=== PATIENT | female | born 1965 | race Caucasian/White ===

== ENCOUNTER 2017-07-06 18:00 | Inpatient (IN) | payer MEDICARE, OTHER ==
[~2017-07-06] VITALS: Ht 172.7 cm; Wt 66.5 kg
[~2017-07-06 18:00] MED LIST: AMLODIPINE BESYL5 MG PO; ATORVASTATIN CA20 MG PO; CELEBREX100 MG PO; CYMBALTA60 MG PO; FLEXERIL5 MG; FOLIC ACID1 MG PO; IBUPROFEN200 MG PO; LEVOTHYROXINE100 MCG PO; NORCO 10-325 T1 EACH PO; OMEPRAZOLE20 MG PO; PREMARIN0.45 MG PO; REMERON30 M1 PO; SINGULAIR10 MG PO; TOVIAZ4 MG PO; VALTREX500 MG PO
--- NOTE | 2017-07-06 18:38 | Diagnostic Imaging Report ---
PROCEDURE:CHEST SINGLE (PORTABLE) COMPARISON:None. INDICATIONS:altered mental status FINDINGS: LUNGS:No significant pulmonary parenchymal abnormalities and normal vascularity. CARDIAC:Normal size cardiac silhouette. MEDIASTINUM:Normal. PLEURA:Normal. BONES:Fusion plate in the lower cervical spine is partially imaged. Visualized portions are unremarkable. OTHER:Negative. CONCLUSION: No acute cardiopulmonary process. Dictated by: Ashlee Marshall M.D. on 07/06/2017 at 18:40 Electronically approved by: Ashlee Marshall M.D. on 07/06/2017 at 18:40
--- NOTE | 2017-07-06 19:03 | Diagnostic Imaging Report ---
History: Bilateral weakness Comparison studies: None Technique: Axial images were obtained from the skull base to the vertex. Coronal and sagittal reconstructions obtained from the axial data. Findings: Scalp/skull: No abnormalities. No fractures, blastic or lytic lesions. Extra-axial spaces: No masses. No fluid collections. Brain sulci: Appropriate for age. Ventricles: Normal in size and configuration. No hydrocephalus. Parenchyma: Few hypodensities in the supratentorial white matter are small vessel ischemic changes. No masses, hemorrhage, acute or chronic cortical vascular insults. Sellar/suprasellar region: No abnormalities. Craniocervical junction: Patent foramen magnum. No Chiari one malformation. Incidental findings: Atherosclerotic calcifications in the carotid siphons . Mild opacification of the right mastoid air cells. Impression: No acute abnormalities. Mild supratentorial white matter small vessel ischemic changes. Signed by: DR Tru Garcia M.D. on 07/06/2017 7:00 PM
--- NOTE | 2017-07-06 19:24 | History and Physical ---
HISTORY OF PRESENT ILLNESS: Patient presented to the emergency room having called the office approximately at 1530 today regarding symptoms of COHEN generalized X 3 days and altered sensorium. She was asked to come to the emergency room at that time. History includes chronic primary hypertension, degenerative joint disease and disc disease with chronic back pain. Patient declining further invasive treatments. Prior stroke. Hypothyroidism. Allergic rhinitis. Herpes simplex. Patient also has been taking chronically estrogens 0.45 mg a day of conjugated estrogens, which she has declined recommendations to stop. See also prior admission med list. Includes thyroid supplements antihypertensives as well as chronic [place] 10. SURGICAL PMH - Septoplasty; C-spine X 2; EGD 2013; Colonoscopy 2014; D&C X 4; Cath 2014 - 20% lesion only. SOCIAL HISTORY: The patient smokes 1 pack of cigarettes daily. She uses marijuana and used this morning. She also took in addition to her prescribed medicines Benadryl yesterday. FAMILY HISTORY: Mother CVA, CAD; Father CVA; Siblings seizures, depression. Patient notes occasional generalized headache today. Denies meningismus. No current visual symptoms. Denies dysphagia. The family related altered speech today. ROSS further negative. Patient has chronic dyspnea on exertion and is sedentary. Denies chest pain. Denies nausea or diaphoresis or bleeding. Denies current symptoms. Chronic low back pain with occasional bilateral radicular symptoms. ALLERGIES: Penicillin, Sulfa, Wellbutrin, Ambien. Cozaar caused renal failure. Lipitor caused leg pain. Pneumovax given 2011. Again to check outpatient records when available regarding these. CURRENT EXAMINATION GENERAL: The patient is supine on stretcher. She is oriented. Speech is slightly altered from baseline. VITAL SIGNS: Pulse 80 and regular. Respiratory rate 16. No respiratory distress. Blood pressure 140/86. HEENT: Pupils are equal and reactive. EOMs full. No pallor. NECK: Supple. Throat clear. Tongue midline. Carotids palpable. No palpable goiter. PULMONARY: On auscultation reduced breath. CARDIAC: Sounds soft. ABDOMEN: Overweight. Soft. Bowel sounds normal. EXTREMITIES: Without cyanosis, clubbing or edema. Trace generalized left weakness. DTRs depressed. CURRENT IMPRESSION: 1. Altered sensorium. 2. Altered speech. 3. Cephalgia. 4. History of stroke. 5. Ongoing estrogen use. 6. Hypothyroidism. 7. Primary hypertension. 8. Disk disease with chronic low back pain and chronic requirements for hydrocodone. Patient declining further invasive treatment. C6 Radiculopathy. 9. Allergic rhinitis. 10. History of herpes simplex on chronic valacyclovir. 11. COPD. 12. A1C 6.3 on 01-21-17 (Prediabetes). 13. Psoriasis. 14. Depression. 15. Stable R adrenal adenoma (CT 2007, 2013) 16. Prior imaging with R Mastoiditis. 17. PVD L renal artery stenosis - nonfunction L (atrophied) kidney. 18. GERD Case discussed with ER physician. Plans are for head CT. TPA if a candidate. Control blood pressure. Continue thyroid supplements. See also initial orders as discussed with ER. The patient advised regarding findings and initial recommendations. See also home med list per EMR when available. Initial database here not yet available. Job#: [id number] GH MTDD
[2017-07-06 19:32] LABS: BASOPHILS % 0.3 % (0.0-1.0); EOSINOPHILS # (AUTO) 0.1 (0.0-0.4); EOSINOPHILS % 0.7 % (0.0-6.0); HEMATOCRIT 39.4 % (34.2-44.1); HEMOGLOBIN 13.2 g/dL (12.0-16.0); LYMPHOCYTES # (AUTO) 3.3 (1.0-3.2); LYMPHOCYTES % 29.1 % (18.0-39.1); MEAN CORPUSCULAR HEMOGLOBIN 29.5 pg (28-32); MEAN CORPUSCULAR HGB CONC 33.5 g/dL (31-35); MEAN CORPUSCULAR VOLUME 88.1 fL (81-99); MONOCYTES # (AUTO) 0.8 (0.2-0.8); MONOCYTES % 7.2 % (4.4-11.3); NEUTROPHILS % 62.5 % (38.7-80.0); PLATELET COUNT 250 x10e3/uL (140-360); RED BLOOD COUNT 4.47 x10e6/uL (3.6-5.1); RED CELL DISTRIBUTION WIDTH 14.6 % (11.7-14.4)
[2017-07-06 19:34] LABS: CLARITY,URINE CLEAR (CLEAR); COLOR,URINE YELLOW (YELLOW)
[2017-07-06 19:35] LABS: BILIRUBIN,URINE NEGATIVE (NEGATIVE); KETONES,URINE 1+ (NEGATIVE); LEUKOCYTE ESTERASE ,URINE NEGATIVE (NEGATIVE); NITRITE,URINE NEGATIVE (NEGATIVE); PROTEIN,URINE DIPSTICK TRACE (NEGATIVE); URINE UROBILINOGEN 0.2 mg/dL (0.2 - 1)
[2017-07-06 19:38] LABS: AMPHETAMINES SCREEN,URINE NEGATIVE (NEGATIVE); BENZODIAZEPINES SCREEN,URINE POSITIVE (NEGATIVE); PHENCYCLIDINE SCREEN,URINE NEGATIVE (NEGATIVE)
[2017-07-06 19:42] LABS: INR 0.98; PROTHROMBIN TIME 12.2 seconds (11.9-14.5)
[2017-07-06 19:43] LABS: PARTIAL THROMBOPLASTIN TIME 28.5 seconds (23.8-35.5)
[2017-07-06 19:49] LABS: ALANINE AMINOTRANSFERASE 25 IU/L (0-55); ALBUMIN/GLOBULIN RATIO 1.1 (0.8-2.0); ALKALINE PHOSPHATASE 104 IU/L (40-150); ANION GAP 14.6 mmol/L (8-16); BLOOD UREA NITROGEN 15 mg/dL (7-26); BUN/CREATININE RATIO 19 (6-25); CARBON DIOXIDE 24 mmol/L (22-29); CHLORIDE 105 mmol/L (98-107); EST GLOMERULAR FILTRATION RATE > 60 ML/MIN (60-); GLUCOSE 104 mg/dL (74-118); POTASSIUM 3.6 mmol/L (3.5-5.1); SODIUM 140 mmol/L (136-145)
[2017-07-06 19:49] LABS: BACTERIA,URINE RARE /HPF; EPITHELIAL CELLS,URINE FEW /LPF
[2017-07-06] MEDS ORDERED: ALTEPLASE 50 MG/VIAL (29 MILLION IU) IV ONE ×2 (20:00)
[2017-07-06] MEDS: SODIUM CHLORIDE 0.9% 1000ML 1,000 ML IV SCH (20:31)
--- OUTSIDE RECORDS SUMMARY | 2017-07-06 22:16 | XMS REPORT ---
Author [facility] Address Unknown Phone Unavailable Care Team Providers Care Documentation Liaison Name Role Phone SANDEEP FOY Unavailable Unavailable Problems This patient has no known problems. Allergies, Adverse Reactions, Alerts This patient has no known allergies or adverse reactions. Medications This patient has no known medications. Results Test Description Test Time Test Comments Text Results Atomic Results Result Comments CHEST SINGLE (PORTABLE) [place] [address] Patient Name: ELIANA SAMUELS [facility] MR #: [id number] : 1965 Age/Sex: 51/F Req #: [id number] Adm Physician: Ordered by: SANDEEP FOY MD Report #: [id number] Location: ER Room/Bed: Procedure: [id number] DX/CHEST SINGLE (PORTABLE) Exam Date: 07/06/17 Exam Time: 1815 REPORT STATUS: Signed PROCEDURE: CHEST SINGLE (PORTABLE) COMPARISON: None. INDICATIONS: altered mental status FINDINGS: LUNGS: No significant pulmonary parenchymal abnormalities and normal vascularity. CARDIAC: Normal size cardiac silhouette. MEDIASTINUM: Normal. PLEURA: Normal. BONES: Fusion plate in the lower cervical spine is partially imaged. Visualized portions are unremarkable. OTHER: Negative. CONCLUSION: No acute cardiopulmonary process. Dictated by: Samuel Marshall M.D. on at 18:40 Electronically approved by: Samuel Marshall M.D. on at 18:40 Dictated By: SAMUEL MARSHALL MD 39 Transcribed By : [place] on 07/06/171839 COPY TO: SANDEEP FOY MD CT BRAIN WO [place] [address] Patient Name: ELIANA SAMUELS [facility] MR #: [id number] : 1965 Age/Sex: 51/F Req #: [id number] Adm Physician: Ordered by: SANDEEP FOY MD Report #: [id number] Location: Room/Bed: Procedure: [id number] CT/CT BRAIN WO Exam Date: 07/06/17 Exam Time: 1814 REPORT STATUS: Signed History: Bilateral weakness Comparison studies: None Technique: Axial images were obtained from the skull base to the vertex. Coronal and sagittal reconstructions obtained from the axial data. Findings: Scalp/skull: No abnormalities. No fractures, blastic or lytic lesions. Extra-axial spaces: No masses. No fluid collections. Brain sulci: Appropriate for age. Ventricles: Normal in size and configuration. No hydrocephalus. Parenchyma: Few hypodensities in the supratentorial white matter are small vessel ischemic changes. No masses, hemorrhage, acute or chronic cortical vascular insults. Sellar/suprasellar region: No abnormalities. Craniocervical junction: Patent foramen magnum. No Chiari one malformation. Incidental findings: Atherosclerotic calcifications in the carotid siphons . Mild opacification of the right mastoid air cells. Impression: No acute abnormalities. Mild supratentorial white matter small vessel ischemic changes. Signed by: DR Tru Garcia M.D. on 07/06/2017 7:00 PM Dictated By : TRU STREETER MD 99 COPY TO: SANDEEP FOY MD
[2017-07-07] VITALS (71 sets, daily range): BP systolic 120–194; BP diastolic 54–105
[2017-07-07] MEDS ORDERED: ONDANSETRON HCL 4 MG ORAL DISINTEGRATING TAB ONE (04:56)
[2017-07-07] MEDS: ONDANSETRON HCL 4 MG ORAL DISINTEGRATING TAB PO PRN ×2 (05:19→18:15)
[2017-07-07] MEDS: SODIUM CHLORIDE 0.9% 1000ML 1,000 ML IV SCH ×2 (05:35→06:47)
[2017-07-07] MEDS: LEVOTHYROXINE SODIUM 100 MCG TAB PO SCH (10:46)
[2017-07-07] MEDS: FOLIC ACID 1 MG TAB PO SCH (10:46)
[2017-07-07] MEDS: PANTOPRAZOLE SOD 40 MG TABEC PO SCH (10:46)
[2017-07-07] MEDS: HYDROCODONE/APAP 10MG-325MG TAB PO PRN ×5 (10:47→18:36)
[2017-07-07 11:13] LABS: CHOL/HDL RATIO 3.3 (3.0-3.6)
[2017-07-07 11:33] LABS: THYROID STIMULATING HORMONE 0.402 uIU/mL (0.350-4.940)
--- NOTE | 2017-07-07 17:59 | Consultation ---
DATE OF CONSULTATION: July 07, 2017 NEUROLOGY CONSULTATION HISTORY OF PRESENT ILLNESS: Ms. Jackman is a 51-year-old, right-hand- dominant woman with past medical history significant for hypertension, hyperlipidemia, possible atrial flutter, and number one prior stroke with unknown residual deficits who presented to [facility] on July 06, 2017 with symptoms suspicious for stroke. Ms. Jackman reports having a labile blood pressure for few days prior to admission. In addition, the patient endorses a headache which is described as follows: The pain was located behind the eyes and did not radiate. The pain was described as sharp and rated a 10 out of 10. Associated with the headache were photophobia, phonophobia, nausea, and dizziness. One day prior to admission, the patient noted mild dysarthria. Other than the mild dysarthria, labile blood pressure, and headache, the patient reports experiencing no other symptoms at that time. On the day admission, in addition to the symptoms described above, the patient reports having a facial droop (site unknown), left hemiparesis affecting the arm and leg, and impairment of gait secondary to weakness. Ms. Jackman notified her primary care physician regarding her symptoms. She was instructed to proceed to the emergency center at [facility] immediately for further evaluation. Upon admission to the emergency center, the patient was afebrile with a blood pressure of 152/82 mmHg and a pulse of 57 beats per minute. The patient's documented neurological examination is not available for review at this time. However, I spoke with the emergency center attending shortly before 8 p.m. on July 06, 2017. He informed me the patient had left hemiparesis affecting the arm and the leg. He informed the symptoms began approximately 3 to 4 hours previously. However, in speaking with Ms. Jackman, she reports these symptoms were present "all day". In my conversation with the emergency center attending, based on the information provided, it was determined there were no absolute contraindications to administration of intravenous thrombolytics. Therefore, Ms. Jackman received a bolus dose of Alteplase 5.8 mg IV over approximately 1 minute followed by an infusion of 52.2 mg IV over the next hour. Afterwards, the patient was admitted to the intensive care unit of [facility] for further evaluation and treatment. As stated above, the patient had a stroke approximately 1 year ago. Ms. Jackman does not recall what symptoms she experienced during that stroke. REVIEW OF SYSTEMS: Chest pain, palpitations, nausea and vomiting, dysarthria, facial weakness, weakness of the left arm and left leg, impaired balance and gait, back pain, headache, photophobia, phonophobia, and dizziness. PAST MEDICAL HISTORY: Hypertension, hyperlipidemia, angina, possible atrial flutter, asthma, thyroid disease, depression, posttraumatic stress disorder, prior history of migraines, one prior stroke with unknown residual deficits, chronic neck and back pain with radiculopathy, psoriasis, and . PAST SURGICAL HISTORY: Cervical fusion times 2, partial hysterectomy, D and C times 4, exploratory laparotomy times 2, epidural steroid injections, cardiac catheterization. PAST HOSPITALIZATIONS: Surgeries/procedures as listed, childbirth times 3, stroke, multiple other hospitalizations for reasons patient cannot recall. FAMILY HISTORY: The patient's paternal and maternal grandparents are . Their medical histories are unknown. The patient's father is from complications of congestive heart failure. He had diabetes mellitus type 2, asthma, and depression as well. The patient's mother is alive. She has had 2 strokes as well as diabetes mellitus type 2, angina and atrial fibrillation. The patient had 5 sisters and 2 brothers. One sister is . One brother is . The patient's sister from liver failure due to alcoholic cirrhosis. The patient's remaining brother has coronary artery disease. One sister has bipolar disorder. Ms. Jackman reports 1 or 2 of her sister's has epilepsy. The patient has 3 children. Her eldest daughter has possible depression. Her youngest daughter has bipolar disorder. SOCIAL HISTORY: Ms. Jackman lives with a domestic partner. She is on disability. The patient does report current tobacco use. She has smoked approximately 1 pack per day for the past 40 years. Patient does not endorse alcohol use. She reports daily marijuana use for treatment of pain. HOME MEDICATIONS: Aspirin 81 mg by mouth daily, amlodipine 5 mg by mouth daily, Celebrex 100 mg by mouth twice daily, Flexeril 5 mg by mouth three times daily as needed, Cymbalta 60 mg by mouth daily, Premarin 0.45 mg by mouth daily, Toviaz 4 mg by mouth daily, folic acid 1 mg by mouth daily, hydrocodone/acetaminophen 10 and 325 mg by mouth every 6 hours as needed for pain, ibuprofen 400 mg by mouth as needed for pain, levothyroxine 100 mcg by mouth daily, Remeron 30 mg by mouth at bedtime daily, Singulair 10 mg by mouth at bedtime daily, omeprazole 20 mg by mouth daily, valacyclovir 500 mg by mouth daily. ALLERGIES: PATIENT ENDORSES ALLERGIES TO PENICILLIN, SULFA DRUGS, ATORVASTATIN, BUPROPION, TRAMADOL, LISINOPRIL, LOSARTAN, AND AMBIEN. NO KNOWN FOOD ALLERGIES. NO KNOWN ALLERGIES TO LATEX. NO KNOWN ALLERGIES TO IODINE OR OTHER CONTRAST MATERIALS. PHYSICAL EXAMINATION: VITAL SIGNS: Height 68 inches, weight 147 pounds, BMI 22.3 kg per meter squared, blood pressure 149/84 mmHg, pulse 76 beats per minute, respiratory rate 18 breaths per minute, oxygen saturation 96% on room air. GENERAL: The patient is awake and alert. Does not appear distressed. HEENT: Normocephalic and atraumatic. Pupils are equal, round and reactive to light. Moist mucous membranes. NECK: Supple. No appreciable thyromegaly. No appreciable carotid bruits. CARDIOVASCULAR: S1 and S2. Regular rate and rhythm. No murmurs, rubs or gallops. RESPIRATORY: Clear to auscultation bilaterally. No wheezes, rhonchi or rales. EXTREMITIES: The skin is warm and dry. No clubbing, cyanosis or edema. The posterior tibial and dorsalis pedis pulses are 1+ and symmetric. SKIN: No rashes or lesions. NEUROLOGIC: Memory/attention: The patient is awake and alert. Oriented to person, place, time, and situation. CRANIAL NERVES: Cranial nerve I: Not tested. Cranial nerves II, III, IV, : Pupils are equal and round, react briskly to light (from 6 mm to 3 mm). Extraocular movements intact. No nystagmus. Cranial nerve V: Sensation to light touch and pinprick is intact in the bilateral V1 through V3 distributions except as follows: Decreased sensation to pinprick over the left VII distribution. Strength of the temporalis and masseter muscles is within normal limits. Cranial nerve VII: There is flattening of the right nasolabial fold. All facial movements are symmetric. Strength is within normal limits. Cranial nerve VIII: Hearing is intact to finger rub bilaterally. Cranial nerve IX and X: The soft palate elevates equally and symmetrically. Cranial nerve XI: Normal strength of the bilateral sternocleidomastoid and trapezius muscles. Cranial nerve XII: The tongue protrudes midline and moves symmetrically from side to side. STRENGTH: Bulk is normal. The patient maintains both arms against gravity for more than 10 seconds each without drift. The patient maintains both legs against gravity for more than 5 seconds each without drift. Tone is normal. DTRs: Deep tendon reflexes are 3+ at the right triceps, biceps, brachioradialis, and patella. Deep tendon reflexes are 2+ at the left triceps, biceps, brachioradialis and patella. The Achilles' reflexes are 1+ and symmetric. Plantar responses are flexor bilaterally. Absent clonus. SENSATION: Intact to light touch and pinprick in both arms and both legs except as follows: Decreased sensation to light touch over the left arm. Decreased sensation to light touch and pin prick over the right leg. CEREBELLAR: Xjeukz-mkhf-hnqzxx and heel-tellez movements are intact without dysmetria or other impairment. GAIT: Deferred. SPEECH: Spontaneous speech is mildly dysarthric without appreciable aphasia. Repetitions is intact. INVOLUNTARY MOVEMENTS: None. PRONATOR DRIFT: As per motor exam. LABORATORY DATA: Sodium 140, potassium 3.6, chloride 105, carbon dioxide 24, anion gap 14.6, BUN 15, creatinine 0.80, estimated GFR greater than 60, BUN to creatinine ratio 19, glucose 104, calcium 10.0, total bilirubin 0.4, AST 17, ALT 25, alkaline phosphatase 104, total protein 7.7, albumin 4.0, globulin 3.7, albumin to globulin ratio 1.1. CBC with differential and platelets reveals a white blood cell count 11.15 with 62.5% neutrophils, 29.1% lymphocytes, 7.2% monocytes, 0.7% eosinophils and 0.3% basophils. The hemoglobin and hematocrit are 13.2 and 39.4, respectively. The platelet count is 250. PT 12.2. INR 0.98, PTT 28.5. Urinalysis revealed trace protein and 1+ ketones. A urine drug screen was positive for opiates and benzodiazepines. RPR pending. DIAGNOSTIC STUDIES: EKG on 07/06/2017 normal sinus rhythm at [address] brain without contrast on 07/06/2017: On my review, there is no evidence of recent large territorial ischemia, hemorrhage, mass or mass effect. Chest X-ray on 07/06/2017: No acute cardiopulmonary process. ASSESSMENT AND PLAN: Ms. Jackman is a 51-year-old, [id number] woman with multiple vascular risk factors, including a prior stroke with unknown residual deficits, who presented to the emergency center at [facility] on the evening of July 06, 2017 with symptoms suspicious for a stroke. Ms. Jackman is status post treatment with intravenous TPA. Her neurological examination is significant for diminished sensation to pinprick over the left VII distribution, flattening of the right nasolabial fold, brisk deep tendon reflexes over the right arm and leg, diminished sensation to light touch over the left arm, diminished sensation to light touch and pinprick over the right leg, and mild dysarthria. Patient's laboratory data and other diagnostic studies have been reviewed and are documented above. Based on Ms. Albright's description of her symptoms and findings on her neurological examination, I am having difficulty localizing this most recent stroke, if the patient did in fact have a stroke. It would be helpful to know what, if any, deficits Ms. Jackman has from the previous stroke which occurred approximately 1 year ago. Other possible diagnoses which may account for the patient's symptoms is recrudescence of prior deficits in the setting of hypertensive emergency. Ms. Jackman reports her systolic blood pressures were in the 200's and above while at home. Another possible diagnosis is complex migraine. RECOMMENDATIONS: 1. Lipid panel and hemoglobin A1c. 2. MRI brain without contrast. 3. Echocardiogram. 4. Bilateral carotid artery ultrasound with Doppler. 5. Plavix 75 mg by mouth daily for stroke prophylaxis will be started 24 hours status post tPA. 6. Allow permissive hypertension for 24 to 48 hours post stroke. Patient's goal blood pressure is 160-180/70-90 mmHg. 7. Followup lipid panel. 8. Followup hemoglobin A1c. Tight glycemic control. 9. Speech and physical therapy consultations will be ordered. 10. GI prophylaxis with Protonix. DVT prophylaxis with STDs. 11. Smoking cessation counseling was provided to the patient. 12. Discontinue estrogen supplements. 13. Defer treatment of the remaining medical comorbidities to the primary and other services. Thank you for this consultation. I will continue to follow this patient while she remains in the hospital. TIME SPENT: 70 minutes. Job#: [id number] GH
[2017-07-07] MEDS: SODIUM CHLORIDE 0.45% 1,000 ML IV SCH (18:50)
--- NOTE | 2017-07-07 20:03 | Diagnostic Imaging Report ---
EXAMINATION: MRI of the brain without contrast. HISTORY: Acute ischemic stroke, status post TPA COMPARISON: None. TECHNIQUE: Sagittal T2; axial DWI, T2, FLAIR, T1-IR, T2 gradient echo; coronal FLAIR. IMAGE QUALITY: Adequate. FINDINGS: Parenchyma: 1. A few scattered white matter hyperintense foci, most likely nonspecific chronic medical changes mostly in the bilateral frontal lobes 2. No mass, hemorrhage, acute or chronic infarcts. Skull: Unremarkable. Vessels: Expected flow voids present in the major arteries and dural sinuses. Extra-axial spaces: No abnormal signal intensity or mass effect. Brain volume: Within normal limits for age. Ventricles: No hydrocephalus or displacement. Foramen magnum: Unremarkable. Sella: Unremarkable. Paranasal / mastoid sinuses: Partial opacification of the right mastoid air cells, likely minimal effusion, otherwise clear. IMPRESSION: 1. No acute infarcts seen at this time. No intracranial hemorrhage. 2. Unchanged minimal chronic microvascular ischemic changes compared to head CT on 07/06/2017. Signed by: Dr. Juanita Vuong M.D. on 07/07/2017 7:59 PM
[2017-07-07] MEDS ORDERED: MAGNESIUM HYDROXIDE 30 ML UDC ONE (20:06)
[2017-07-07] MEDS ORDERED: NON-FORMULARY MEDICATION (Mirtazapine (Remeron) 30 MG) PO SCH (21:00)
[2017-07-07] MEDS: MONTELUKAST SODIUM 10 MG TAB PO SCH (21:40)
[2017-07-07] MEDS: AMLODIPINE BESYLATE 5 MG TAB PO SCH (21:40)
[2017-07-07] MEDS: MIRTAZAPINE 15 MG TAB PO SCH (21:40)
[2017-07-07] MEDS ORDERED: DULOXETINE HCL 30 MG DELAYED RELEASE PO SCH (22:00)
[2017-07-07] MEDS: CITALOPRAM HYDROBROMIDE 20 MG TAB PO SCH (22:41)
[2017-07-08] VITALS (9 sets, daily range): BP systolic 147–188; BP diastolic 76–94
[2017-07-08] MEDS ORDERED: ENALAPRIL MALEATE 5 MG TAB PO SCH (01:00)
[2017-07-08] MEDS: CLONIDINE HCL 0.1 MG TAB PO PRN ×2 (01:30→11:00)
[2017-07-08] MEDS: HYDROCODONE/APAP 10MG-325MG TAB PO PRN ×4 (01:33→17:40)
[2017-07-08] MEDS: SODIUM CHLORIDE 0.9% 1000ML 1,000 ML IV SCH ×5 (01:52→21:52)
[2017-07-08] MEDS: ONDANSETRON HCL 4 MG ORAL DISINTEGRATING TAB PO PRN (04:29)
[2017-07-08] MEDS ORDERED: CLONIDINE HCL 0.1 MG TAB PO ONE (06:00)
[2017-07-08 06:58] LABS: BASOPHILS % 0.3 % (0.0-1.0); EOSINOPHILS % 0.1 % (0.0-6.0); HEMATOCRIT 40.8 % (34.2-44.1); HEMOGLOBIN 13.9 g/dL (12.0-16.0); LYMPHOCYTES # (AUTO) 2.9 (1.0-3.2); MEAN CORPUSCULAR HEMOGLOBIN 29.3 pg (28-32); MEAN CORPUSCULAR HGB CONC 34.1 g/dL (31-35); MEAN CORPUSCULAR VOLUME 86.1 fL (81-99); MONOCYTES # (AUTO) 1.2 (0.2-0.8); MONOCYTES % 8.4 % (4.4-11.3); NEUTROPHILS # (AUTO) 9.8 (2.1-6.9); NEUTROPHILS % 69.6 % (38.7-80.0); PLATELET COUNT 254 x10e3/uL (140-360); RED BLOOD COUNT 4.74 x10e6/uL (3.6-5.1); RED CELL DISTRIBUTION WIDTH 14.6 % (11.7-14.4)
[2017-07-08 07:18] LABS: BLOOD UREA NITROGEN 7 mg/dL (7-26); BUN/CREATININE RATIO 10 (6-25); CALCIUM 9.6 mg/dL (8.4-10.2); CARBON DIOXIDE 19 mmol/L (22-29); CREATININE, SERUM 0.69 mg/dL (0.57-1.11); EST GLOMERULAR FILTRATION RATE > 60 ML/MIN (60-); GLUCOSE 103 mg/dL (74-118)
[2017-07-08 07:41] LABS: CHLORIDE 107 mmol/L (98-107); SODIUM 141 mmol/L (136-145)
[2017-07-08 08:03] LABS: AMPHETAMINES SCREEN,URINE NEGATIVE (NEGATIVE); BENZODIAZEPINES SCREEN,URINE NEGATIVE (NEGATIVE); PHENCYCLIDINE SCREEN,URINE NEGATIVE (NEGATIVE)
[2017-07-08] MEDS: CLOPIDOGREL BISULFATE 75 MG TAB PO SCH (09:00)
[2017-07-08] MEDS ORDERED: PANTOPRAZOLE SOD 40 MG TABEC PO SCH (09:00)
[2017-07-08] MEDS ORDERED: LEVOTHYROXINE SODIUM 100 MCG TAB PO SCH (09:00)
[2017-07-08] MEDS: AMLODIPINE BESYLATE 5 MG TAB PO SCH ×2 (09:00→16:42)
[2017-07-08] MEDS ORDERED: AMLODIPINE BESYLATE 5 MG TAB PO SCH (09:00)
[2017-07-08] MEDS ORDERED: NON-FORMULARY MEDICATION (Duloxetine Hcl (Cymbalta) 60 MG) PO SCH (09:00)
[2017-07-08] MEDS ORDERED: DULOXETINE HCL 30 MG DELAYED RELEASE PO SCH (09:00)
[2017-07-08] MEDS: PANTOPRAZOLE SOD 40 MG TABEC PO SCH (09:01)
[2017-07-08] MEDS: FOLIC ACID 1 MG TAB PO SCH (09:01)
[2017-07-08] MEDS: SODIUM CHLORIDE 0.45% 1,000 ML IV SCH (13:00)
[2017-07-08] MEDS ORDERED: POTASSIUM CHLORIDE 20 MEQ TAB CR PO ONE (13:50)
[2017-07-08] MEDS: CARVEDILOL 3.125 MG TAB PO SCH ×2 (14:00→21:00)
[2017-07-08] MEDS: CLONIDINE HCL 0.3 MG TAB PO SCH ×2 (14:00→21:00)
[2017-07-08 14:10] LABS: CLARITY,URINE SL CLOUDY (CLEAR); COLOR,URINE YELLOW (YELLOW)
[2017-07-08 14:12] LABS: LEUKOCYTE ESTERASE ,URINE NEGATIVE (NEGATIVE); NITRITE,URINE NEGATIVE (NEGATIVE); PROTEIN,URINE DIPSTICK 2+ (NEGATIVE)
[2017-07-08 14:13] LABS: BILIRUBIN,URINE 2+ (NEGATIVE); KETONES,URINE 3+ (NEGATIVE); URINE UROBILINOGEN 0.2 mg/dL (0.2 - 1)
[2017-07-08 14:23] LABS: BACTERIA,URINE RARE /HPF; EPITHELIAL CELLS,URINE RARE /LPF; RBC,URINE 0-5 /HPF (0-5)
--- NOTE | 2017-07-08 15:34 | Diagnostic Imaging Report ---
PROCEDURE: Frontal and lateral views of the chest. COMPARISON: None. INDICATIONS: shortness of breath, chest pain FINDINGS: Lines/tubes: None. Lungs: The lungs are well inflated and clear. There is no evidence of pneumonia or pulmonary edema. Pleura: There is no pleural effusion or pneumothorax. Heart and mediastinum: The heart and the mediastinum are normal. Bones: No acute bony abnormality. IMPRESSION: No acute cardiopulmonary disease. Dictated by: Dwayne Beverly M.D. on 07/08/2017 at 15:36 Electronically approved by: Dwayne Beverly M.D. on 07/08/2017 at 15:36
[2017-07-08] MEDS ORDERED: CARVEDILOL 3.125 MG TAB PO SCH (17:00)
[2017-07-08] MEDS ORDERED: CLONIDINE HCL 0.3 MG TAB PO SCH (17:00)
[2017-07-08] MEDS: ENOXAPARIN SOD INJ 40 MG/0.4 ML SYR SC SCH (20:16)
[2017-07-08] MEDS: MONTELUKAST SODIUM 10 MG TAB PO SCH (20:16)
[2017-07-08] MEDS: MIRTAZAPINE 15 MG TAB PO SCH (20:16)
[2017-07-08] MEDS: CITALOPRAM HYDROBROMIDE 20 MG TAB PO SCH (21:01)
[2017-07-09] VITALS (8 sets, daily range): BP systolic 128–175; BP diastolic 64–79
[2017-07-09] MEDS: HYDROCODONE/APAP 10MG-325MG TAB PO PRN ×3 (04:38→18:35)
[2017-07-09] MEDS: SODIUM CHLORIDE 0.45% 1,000 ML IV SCH (06:16)
[2017-07-09] MEDS: CARVEDILOL 3.125 MG TAB PO SCH ×3 (06:17→21:42)
[2017-07-09] MEDS: CLONIDINE HCL 0.3 MG TAB PO SCH ×3 (06:17→21:42)
[2017-07-09] MEDS: SODIUM CHLORIDE 0.9% 1000ML 1,000 ML IV SCH (06:18)
[2017-07-09] MEDS: LEVOTHYROXINE SODIUM 100 MCG TAB PO SCH (06:28)
[2017-07-09 06:49] LABS: BASOPHILS % 0.2 % (0.0-1.0); EOSINOPHILS # (AUTO) 0.1 (0.0-0.4); EOSINOPHILS % 0.8 % (0.0-6.0); HEMATOCRIT 37.7 % (34.2-44.1); HEMOGLOBIN 12.8 g/dL (12.0-16.0); LYMPHOCYTES # (AUTO) 2.6 (1.0-3.2); LYMPHOCYTES % 29.9 % (18.0-39.1); MEAN CORPUSCULAR HEMOGLOBIN 29.3 pg (28-32); MEAN CORPUSCULAR VOLUME 86.3 fL (81-99); MONOCYTES # (AUTO) 0.9 (0.2-0.8); MONOCYTES % 9.8 % (4.4-11.3); NEUTROPHILS # (AUTO) 5.2 (2.1-6.9); PLATELET COUNT 229 x10e3/uL (140-360); RED BLOOD COUNT 4.37 x10e6/uL (3.6-5.1); RED CELL DISTRIBUTION WIDTH 14.6 % (11.7-14.4)
[2017-07-09 07:24] LABS: ANION GAP 13.7 mmol/L (8-16); BLOOD UREA NITROGEN 6 mg/dL (7-26); BUN/CREATININE RATIO 9 (6-25); CALCIUM 9.3 mg/dL (8.4-10.2); CARBON DIOXIDE 23 mmol/L (22-29); CHLORIDE 107 mmol/L (98-107); EST GLOMERULAR FILTRATION RATE > 60 ML/MIN (60-); GLUCOSE 137 mg/dL (74-118); SODIUM 141 mmol/L (136-145)
[2017-07-09 07:27] LABS: POTASSIUM 2.7 mmol/L (3.5-5.1)
[2017-07-09] MEDS ORDERED: POTASSIUM CHLORIDE 20 MEQ TAB CR PO STA (08:01)
[2017-07-09] MEDS: FOLIC ACID 1 MG TAB PO SCH (08:26)
[2017-07-09] MEDS: CLOPIDOGREL BISULFATE 75 MG TAB PO SCH (08:26)
[2017-07-09] MEDS: PANTOPRAZOLE SOD 40 MG TABEC PO SCH (08:26)
[2017-07-09] MEDS: AMLODIPINE BESYLATE 5 MG TAB PO SCH ×2 (08:26→15:30)
--- NOTE | 2017-07-09 11:02 | Consultation ---
DATE OF CONSULTATION: July 09, 2017 I would like to thank Dr. Dhaliwal for asking me to see Mrs. Jackman in consultation. REASON FOR CONSULTATION 1. Status post new-onset weakness to the left upper and lower extremity. 2. History of old CVA 1-1/2 years ago. 3. Hypertension. 4. History of radiculopathy. 5. History of atrial flutter. HISTORY: Mrs. Jackman is a pleasant but unfortunate 51-year-old female who about 1-1/2 years ago had previous stroke according to her. She has a history of possible atrial flutter and hyperlipidemia. Came into the hospital with symptoms consistent with stroke. The patient was found to have some labile blood pressures prior to her admission. The patient was noted to have some mild dysarthria. The patient came into the emergency room where over at [facility] her blood pressure was 152/82, and noted to have some left-sided weakness per notes. She received tPA. The patient was admitted. I am being asked to evaluate for rehab needs. Since then, her symptoms seem to have improved, but she still feels weakness on the left side, and has some numbness around both lateral aspects of her eyes and malar area. I am being asked to evaluate for rehab needs. The patient wants to go to [facility]. PAST MEDICAL HISTORY: Hypertension, hyperlipidemia, thyroid disease, asthma, A-flutter, depression, posttraumatic stress disorder, migraines, history of previous CVA with left-sided weakness per her report, pain with radiculopathy, psoriasis. SURGERIES: Include cervical fusion times 2, partial hysterectomy, D and C times 4, exploratory laparotomy, CONCHITA, and cardiac catheterizations. FAMILY HISTORY: Grandparents are passed. Their medical histories are unknown. The patient has a mother who is alive. She has had 2 strokes, as well as diabetes. Diabetes also runs in other members of her family. SOCIAL HISTORY: Lives with her significant other in a trailer. Takes 3 steps to get into the house. Prior to this admission, was baseline able to mobilize and get around without any assistive device. She is on disability mainly for her back pain, as well as her PTSD. HABITS: A pack a day for the past 40 years. Nondrinker. Marijuana use just for pain management. ALLERGIES: PENICILLIN, SULFA, ATORVASTATIN, BUPROPION, ULTRAM, LISINOPRIL, LOSARTAN, AMBIEN. NO KNOWN FOOD ALLERGIES. LABS: White cell count 8.7, hemoglobin 12.8, hematocrit 37.7, and platelets of 229,000. Sodium 141, potassium 2.7, BUN of 6, creatinine 0.7. MRI of the brain shows no acute infarction at this time. No intracranial hemorrhage, unchanged. Minimal chronic microvascular ischemic changes compared to the previous CT. She had a carotid Doppler study, but results are pending. She also had a chest x-ray with no acute cardiopulmonary disease. PHYSICAL EXAMINATION GENERAL: The patient was seen along with her significant other. Awake, alert and oriented times 3. HEENT: Eyes: Gaze is conjugant. No nystagmus. No visual field deficits. Tongue is midline with protrusion. Sensory abarca, she has some numbness feeling right around the malar area bilaterally, as well as both of the lateral aspects of the temporal area, but nothing severe. Dowfww-[id number] finger tracing is pretty within normal limits. No other sensory changes in the arms or legs at this time. NECK: No JVD. HEART: Regular rate and rhythm. LUNGS: Clear to auscultation. ABDOMEN: Nontender and nondistended. EXTREMITIES: Functional range of motion to the arms, as well as the legs. bilaterally. No increased tone or passive range of motion of the arms or legs. Manual muscle testing pretty much 5/5 strength in the right arm and right leg throughout. The left upper extremity demonstrates essentially 4/5 strength throughout. In the left lower extremity, she has give away weakness with knee extension and hip flexion. Demonstrating essentially 4- to 4/5 strength. THERAPY: PT has seen her. There is no occupational therapy available at this facility. Upon PT evaluation, the patient was found to [id number], contact guard assist. Gait was not tested. She did have some elevated blood pressures when they tried to mobilize her more. IMPRESSION 1. Left-sided weakness: She seems to be doing better. MRI and computerized tomography have not confirmed a stroke, but she has reported an old stroke from before. 2. The patient with hypertension. 3. History of possible atrial flutter. 4. Thyroid disease. 5. History of depression. 6. Posttraumatic stress disorder. PLAN: The patient would like to go to [facility] for continuation of care. Staff will be submitting. I would like to also have speech therapy see her while she is here. Unfortunately, no occupational therapy is available. Thank you once again for allowing me to participate in the care of this pleasant patient. Job#: [id number] JOSUE
[2017-07-09] MEDS: ENOXAPARIN SOD INJ 40 MG/0.4 ML SYR SC SCH (15:30)
--- NOTE | 2017-07-09 16:02 | Consultation ---
DATE OF CONSULTATION: July 09, 2017 ATTENDING PHYSICIAN: Dr. Dhaliwal. REASON FOR CONSULTATION: Fever. Thank you, Dr. Dhaliwal, for asking me to see this patient. HISTORY OF PRESENT ILLNESS: The patient is a 51-year-old woman referred for fever. She presented to the emergency department on 07/06/2017 with a headache and altered mental status, as well as history of stroke and hemiparesis. She was evaluated by the ED physician and neurologist. Brain CT scan was negative for so the patient was treated with . Infectious disease has been called for fever, which began a few days ago. She had right forearm peripheral IV, which was changed yesterday because of malfunction. She denies cough, shortness of breath, nausea, vomiting, diarrhea, abdominal pain, and dysuria. PAST MEDICAL HISTORY: Hypertension, hyperlipidemia, hypothyroidism, stroke, dizziness, , herpes simplex, and psoriasis. PAST SURGICAL HISTORY: Septoplasty, D and C, hysterectomy. ALLERGIES: PENICILLIN, SULFA, LIPITOR, AMBIEN, COZAAR, AND WELLBUTRIN. MEDICATIONS: See APR. IMMUNIZATION: She received multiple vaccination in the past. FAMILY HISTORY: The mother with CVA, coronary artery disease, seizure, and depression. SOCIAL HISTORY: Patient smokes 1 pack of cigarettes a day, but would not tolerate talking about smoking. She denies alcohol use. She uses marijuana. REVIEW OF SYSTEMS: As per history of present illness. She reports decreased appetite, bad taste, and odor. PHYSICAL EXAMINATION GENERAL: No acute distress and does not appear toxic. VITAL SIGNS: T-max 100.2, pulse 74, respiratory rate 18, blood pressure 138/77. Weight is 146 pounds. HEENT: Normocephalic. There is no icterus, no injection of conjunctivae. There is no ear or nasal discharge. Moist oral mucosa with poor dentition. There is no pharyngeal erythema or exudate and no oral lesions. NECK: Supple. No lymphadenopathy or meningismus. LUNGS: Clear to auscultation bilaterally. HEART: Normal S1 and S2. ABDOMEN: Soft and nontender. EXTREMITIES: There is no edema, clubbing or cyanosis. There is a bluish discoloration with tender cord of the right forearm of the site of old peripheral IV. SKIN: There is plaque of the feet, posterior elbows, and hand. RE DYE HAND: Awake, alert and oriented to person, place and time. Nonfocal. LABORATORY AND DIAGNOSTIC: WBC 8700 down from 14,020, hemoglobin 12.8, platelet 229,000, neutrophil 59, lymph 29.9, mono 9.8, eosinophil 0.8, and basophil 0.2. BUN 6 and creatinine 0.7. Blood culture is pending. Chest x-ray shows no acute cardiopulmonary process. Brain CT scan also showed no acute bleed or infarct. IMPRESSION 1. Thrombophlebitis, not infected. 2. Fever due to thrombophlebitis. 3. Tobacco use disorder. 4. Psoriasis. 5. Hyperthyroidism. PLAN 1. Apply warm compresses to the right forearm tender cord. 2. No antibiotic is indicated at this time. Job#: [id number] BJ
[2017-07-09] MEDS: MONTELUKAST SODIUM 10 MG TAB PO SCH (21:42)
[2017-07-09] MEDS: CITALOPRAM HYDROBROMIDE 20 MG TAB PO SCH (21:42)
[2017-07-09] MEDS: MIRTAZAPINE 15 MG TAB PO SCH (21:42)
[2017-07-10] VITALS (8 sets, daily range): BP systolic 120–149; BP diastolic 58–63
[2017-07-10] MEDS: LEVOTHYROXINE SODIUM 100 MCG TAB PO SCH (05:34)
[2017-07-10] MEDS: CLONIDINE HCL 0.3 MG TAB PO SCH ×3 (05:34→20:55)
[2017-07-10] MEDS: CARVEDILOL 3.125 MG TAB PO SCH ×3 (05:34→20:55)
--- NOTE | 2017-07-10 07:04 | Diagnostic Imaging Report ---
Exam: Lumbar spine MRI without IV contrast History: Arm and leg weakness Comparison studies: None Technique: Sagittal and axial T2 , sagittal T1 and IR, axial spin density oblique and coronal T2. Intravenous contrast: None Findings: Number of lumbar vertebral bodies: 5. Alignment: Normal lordosis. No scoliosis. Soft tissues: No T2 hyperintense inflammatory changes. Paraspinal muscles: Mild symmetric atrophy. Lower thoracic cord: Normal in signal and morphology. The tip of the conus is at L2 . Cauda equina: No masses. No arachnoiditis. Vertebrae: No compression fractures, infection or neoplasm. Degenerative changes: Mild loss of T2/STIR disc signal from T10 through L3 and L5-S1. L1-L2: Patent canal and foramina. L2-L3: Mild loss of disc height and loss of T2/STIR disc signal. Mild symmetric bulging disc which does not result in canal stenosis. Patent foramina. L3-L4: No abnormalities L4-L5: Mild symmetric bulging disc and mild right facet arthrosis without associated canal or foraminal stenosis. L5-S1: Moderate loss of disc height and loss of T2 disc signal. Symmetric disc bulge and facet arthrosis with mild to moderate bilateral foraminal stenosis. Additional findings: Multiple small T2 hyperintense lesions in the right kidney are most likely cysts. The left kidney is atrophic and contains a few small T2 hyperintense lesions which may also be cysts. IMPRESSION: 1. Moderately degenerated disc with mild to moderate bilateral foraminal stenosis at L5-S1. No canal stenosis or significant foraminal stenosis at the remaining lumbar levels. 2. Incidental atrophic left kidney with bilateral renal cysts. Signed by: Dr. Jey Ventura M.D. on 07/10/2017 7:00 AM
[2017-07-10 07:17] LABS: ALANINE AMINOTRANSFERASE 20 IU/L (0-55); ALBUMIN 3.6 g/dL (3.5-5.0); ALBUMIN/GLOBULIN RATIO 1.3 (0.8-2.0); ALKALINE PHOSPHATASE 79 IU/L (40-150); ANION GAP 14.2 mmol/L (8-16); BLOOD UREA NITROGEN 14 mg/dL (7-26); BUN/CREATININE RATIO 18 (6-25); CALCIUM 9.5 mg/dL (8.4-10.2); CARBON DIOXIDE 25 mmol/L (22-29); CHLORIDE 109 mmol/L (98-107); CREATININE, SERUM 0.77 mg/dL (0.57-1.11); EST GLOMERULAR FILTRATION RATE > 60 ML/MIN (60-); GLUCOSE 126 mg/dL (74-118); POTASSIUM 3.2 mmol/L (3.5-5.1); SODIUM 145 mmol/L (136-145)
--- NOTE | 2017-07-10 07:30 | Diagnostic Imaging Report ---
Exam: Cervical spine MRI without IV contrast History: Arm and leg weakness Comparison studies: None Technique: Sagittal T1, T2 and IR, axial T2 and axial gradient echo Intravenous contrast: None Findings: Alignment: Normal lordosis. No scoliosis. Cervicomedullary junction: No abnormalities. Patent foramen magnum. Soft tissues: No T2 hyperintense inflammatory changes. Spinal cord: Normal in size and signal from the foramen magnum through T1. Vertebrae: No fractures, infection or neoplasm. Postsurgical changes: Anterior cervical discectomy and fusion (ACDF) at C5-C6 with anterior plate fixated via anterior vertebral body screws and solid interbody fusion. Probable discectomy changes at C6-C7 with susceptibility artifact related related to metallic hardware/possible cage prosthesis which extends from the disc space to the superior C7 endplate. Hardware cannot be further evaluated by MRI and could better be evaluated by conventional cervical spine x-ray or cervical spine CT as warranted. Degenerative changes: C2-C3: Patent canal and foramina. C3-C4: Mildly degenerated disc. Mild canal stenosis due to a disc osteophyte complex with small central disc protrusion. Moderate bilateral foraminal stenosis due to uncovertebral and facet arthrosis. C4-C5: Moderately degenerated disc adjacent to the fused level. Mild canal stenosis due to a disc osteophyte complex. Moderate bilateral foraminal stenosis due to uncovertebral arthrosis. C5-C6: Surgical level. Patent canal and foramina. C6-C7: Moderate loss of disc height. Residual disc osteophyte complex and mildly thickened ligamentum flavum result in mild canal stenosis. Moderate bilateral foraminal stenosis due to uncovertebral arthrosis. Patent canal and foramina. C7-T1: Right facet arthrosis. Patent canal and foramina. Incidental findings: Nonspecific T2 hyperintense reactive changes in the right mastoids. A T2 hyperintense cyst or nodule in the right thyroid lobe measures 0.8 cm. IMPRESSION: 1. No cervical cord signal abnormalities. 2. Surgical changes of C5-C6 anterior fusion and presumed discectomy at C6-C7. 3. Mildly degenerated disc at C3-C4. Moderately degenerated disc at C4-C5 and moderate decreased disc space at C6-C7. 4. Mild degenerative canal stenosis with moderate bilateral degenerative foraminal stenosis at C3-C4, C4-C5 and at C6-C7. Signed by: Dr. Jey Ventura M.D. on 07/10/2017 7:26 AM
[2017-07-10] MEDS: FOLIC ACID 1 MG TAB PO SCH (08:38)
[2017-07-10] MEDS: CLOPIDOGREL BISULFATE 75 MG TAB PO SCH (08:38)
[2017-07-10] MEDS: PANTOPRAZOLE SOD 40 MG TABEC PO SCH (08:38)
[2017-07-10] MEDS: AMLODIPINE BESYLATE 5 MG TAB PO SCH ×2 (08:38→17:31)
[2017-07-10] MEDS: HYDROCODONE/APAP 10MG-325MG TAB PO PRN ×3 (08:45→20:00)
[2017-07-10] MEDS ORDERED: POTASSIUM CHLORIDE 10 MEQ TABCR PO ONE (11:00)
--- NOTE | 2017-07-10 17:05 | Diagnostic Imaging Report ---
History: Acute ischemic stroke Comparison studies: Head CT on 07/06/2017 Brain MRI on 07/07/2017 Technique: 3-D [id number] intracranial. Contrast: None Findings: Internal carotid arteries: No flow abnormalities. Vertebral arteries: No flow abnormalities in the visualized intracranial segments. Basilar artery: No flow abnormalities. Posterior cerebral arteries: No flow abnormalities. Anatomical variants: Acom: Visualized. Pcoms: Right patent. The P1 segment of the right GLASS [employer]OWER [employer] is mildly hypoplastic. Left not visualized. Vertebral arteries: Right dominant IMPRESSION: No abnormalities . Signed by: Dr. Mason Clement M.D. on 07/10/2017 5:02 PM
[2017-07-10] MEDS: ENOXAPARIN SOD INJ 40 MG/0.4 ML SYR SC SCH (17:31)
[2017-07-10] MEDS: CITALOPRAM HYDROBROMIDE 20 MG TAB PO SCH (20:54)
[2017-07-10] MEDS: MONTELUKAST SODIUM 10 MG TAB PO SCH (20:55)
[2017-07-10] MEDS: MIRTAZAPINE 15 MG TAB PO SCH (20:55)
[2017-07-11 00:22] VITALS: BP 133/59
[2017-07-11] MEDS: LEVOTHYROXINE SODIUM 100 MCG TAB PO SCH (05:54)
[2017-07-11] MEDS: CARVEDILOL 3.125 MG TAB PO SCH (05:54)
[2017-07-11] MEDS: CLONIDINE HCL 0.3 MG TAB PO SCH (05:54)
[2017-07-11 06:00] VITALS: BP 129/60
[2017-07-11 07:56] LABS: ANION GAP 12.5 mmol/L (8-16); BLOOD UREA NITROGEN 15 mg/dL (7-26); BUN/CREATININE RATIO 21 (6-25); CALCIUM 9.2 mg/dL (8.4-10.2); CARBON DIOXIDE 25 mmol/L (22-29); CHLORIDE 109 mmol/L (98-107); EST GLOMERULAR FILTRATION RATE > 60 ML/MIN (60-); GLUCOSE 127 mg/dL (74-118); POTASSIUM 3.5 mmol/L (3.5-5.1); SODIUM 143 mmol/L (136-145)
[2017-07-11 08:16] VITALS: BP 133/61
[2017-07-11 08:46] VITALS: BP 133/61
[2017-07-11] MEDS: CLOPIDOGREL BISULFATE 75 MG TAB PO SCH (08:46)
[2017-07-11] MEDS: FOLIC ACID 1 MG TAB PO SCH (08:46)
[2017-07-11] MEDS: AMLODIPINE BESYLATE 5 MG TAB PO SCH (08:46)
[2017-07-11] MEDS: PANTOPRAZOLE SOD 40 MG TABEC PO SCH (08:46)
[2017-07-11] MEDS: HYDROCODONE/APAP 10MG-325MG TAB PO PRN (08:46)
[2017-07-11 12:33] VITALS: BP 153/65
[2017-07-11] MEDS ORDERED: PLAVIX75 MG PO (13:10)
[2017-07-11] MEDS ORDERED: CLONIDINE HCL0.3 MG PO (13:10)
[2017-07-11] MEDS ORDERED: PEPCID20 MG PO (13:11)
[2017-07-11] MEDS ORDERED: COREG3.125 MG PO (13:11)
--- NOTE | 2017-07-11 13:51 | Discharge Summary ---
The patient was hospitalized through the emergency room. See also ER note and electronic medical record with history, physical, prior admissions, consultations. She had history of stroke. The patient presented with multiple difficulties, including labile hypertension, headache, dysarthria, subjective left-sided increase in weakness. Database was obtained. Blood pressure was medically controlled. Neurology consultation was obtained for possible stroke. Patient was given Alteplase in the emergency room. She had a course of progressive improvement. Course was complicated by low-grade fever and superficial phlebitis at the right ventral forearm IV site. She was reassessed by consultants of infectious disease, neurology and cardiology while here. Continuation of medical therapy was recommended. Initial chemistries essentially normal. Magnesium 2.2. The patient's course was complicated by transient hypokalemia, which responded to repletion. This occurred after admission and treatment with IV fluids. LDL was 52. TSH was 0.4. Patient had minimal elevation in blood sugar while here. Maximum sugar 137. The white count paula to 14,000 on July 08, 2017, and fell to 8700 on July 09, 2017. Hemoglobin and platelet counts normal. Sed rate 14. Pro time and PTT normal. Urinalysis without pyuria. No glycosuria. No hematuria. RPR nonreactive. Toxicology positive for opiates. The patient was on hydrocodone for chronic back pain and neck pain prior to admission. She also tested positive for benzodiazepines and cannabinoids. Cultures of blood and urine were negative. ER chest x-ray clear. Followup chest x-ray because of fever was clear. ER head CT with mild supratentorial white matter small vessel ischemic changes. The carotid Doppler without major obstruction. Head MRI on July 07, 2017, no acute infarct. Unchanged minimal chronic microvascular ischemic changes. C-spine MRI on July 09, 2017, see report. No cervical cord signal abnormalities. Surgical changes at C5-C6 anterior effusion and diskectomy of C6-C7. Disk disease at C3-C4, C4-C5 and C6-C7. Mild degenerative canal stenosis. Moderate bilateral foraminal stenosis, C3-C4, C5-C6 and C6-C7. Lumbar spine MRI on July 09, 2017, degenerative disk, bilateral foraminal stenosis, mild, L5-S1. No canal stenosis. Head MRA with no abnormalities. Bubble study and cardiac echo done by the consulting machine programmer, Dr. Pang negative. Echo revealed LVH. Ejection fraction 60%. The patient was markedly improved and requesting outpatient status. Declining rehabilitation move. She requests home physical therapy and this will be requested through the office immediately post discharge. CURRENT IMPRESSION 1. Altered sensorium. 2. Altered speech, resolved. 3. Prior history of stroke. 4. Current symptoms with possible new cerebrovascular accident. Consider aura with migraine. 5. Patient had significant cephalgia, which has resolved. 6. Hypothyroidism. 7. TSH normal here. 8. Primary hypertension with uncontrolled blood pressure on arrival, controlled now. 9. Disk disease. 10. Chronic low back pain. 11. C6 radiculopathy. 12. Lumbar disk disease. 13. Allergic rhinitis. 14. History of herpes simplex, on chronic valacyclovir. 15. Chronic obstructive pulmonary disease. 16. Heavy smoker. 17. Prediabetes with A1c of 6.3 on January 21, 2017. 18. Psoriasis. 19. Depression. 20. Stable right adrenal adenoma, on serial computerized tomographies in 2007 and 2013. 21. Chronic right mastoiditis. 22. Peripheral vascular disease with left renal artery stenosis, which has led to nonfunction and atrophy of the left kidney. 23. Intolerance to ROSARIO inhibitors. 24. Gastroesophageal reflux disease. The patient will follow up in the clinic closely with her neurologist and myself. She will continue: 1. Norvasc 10 mg daily. 2. Plavix 75 mg. As she is on Plavix, PPI will be stopped. 3. She will continue Pepcid 40 mg daily. 4. Catapres 0.3 mg q.8 h. 5. Coreg 3.25 mg q.8 h. 6. She will resume her prior to admission levothyroxine dose 62.5. She will continue prior to admission antidepressants and Singulair. Patient has in the past used estrogens, but she states she has not used these recently, and they will not be used at this time. She was asked to hold her Flexeril and NSAIDs for the time being. The patient was cleared for discharge by her consultants. The findings here were discussed with the patient and her family. She was counseled to call or return for any significant difficulty. KRISTOPHER JULIO MD Job#: [id number] RI
--- NOTE | 2017-07-19 17:13 | Consultation ---
DATE OF CONSULTATION: July 10, 2017 HISTORY OF PRESENT ILLNESS: This 51-year-old patient was admitted to the hospital with speech abnormality, altered mental status and left-sided weakness, which was precipitated by severe headaches. The patient has been seen in consultation by the neurologist. She had CT scan and MRI of the brain, which mostly showed microvascular disease. I was kindly asked by Dr. Dhaliwal to evaluate the patient for any possible cardiac cause of the patient's cerebrovascular insufficiency. The patient has been seen on kind referral by Dr. Dhaliwal in the past for hypertension, angina pectoris and palpitations, and she was found to have mild coronary artery disease on previous cardiac catheterization. Also, there was evidence of severe left renal artery stenosis with nonfunctioning left kidney. PAST MEDICAL HISTORY: The patient's past history also includes lumbar radiculopathy, cervical decompression surgery x2, psoriasis, allergic rhinitis and sinusitis by Dr. Curran, hypothyroidism, migraine headaches, GERD, septoplasty. She apparently had seizure disorder with Zyban and Wellbutrin. She has leg pain with Lipitor, lisinopril and losartan. She cannot tolerate Colestid. The patient has sleep walking with Ambien, and had severe migraine headache after she was started on isosorbide. SOCIAL HISTORY: The patient smokes one pack of cigarettes per day. ALLERGIES: PENICILLIN, SULFA. FAMILY HISTORY: Positive for coronary artery disease, seizure disorder and CVA. REVIEW OF SYSTEMS: Revealed the patient denies any headache or sore throat. The patient denies any chest pain or shortness of breath. The patient denies any abdominal pain. No nausea, vomiting, diarrhea or constipation. She denies any leg pain. PHYSICAL EXAMINATION VITAL SIGNS: Blood pressure 130/76. She is afebrile. Current pulses are present. CHEST: Clear to auscultation. CARDIOVASCULAR: Normal apical impulse. Rhythm is regular. S1 and S2 normal. No S3 and no rub. ABDOMEN: Soft. No tenderness or organomegaly. EXTREMITIES: Pulses are present. There is no peripheral edema. NEUROLOGIC: No localizing defect. IMPRESSION 1. Cryptogenic stroke, recurrent, with microvascular disease on brain scan. 2. Hypertensive cardiovascular disease. 3. Mild coronary artery disease. 4. Gastroesophageal reflux disease. 5. Migraine headache. RECOMMENDATIONS: The patient's symptoms could be related to her migraine headaches. Also as far as cardiac disorder and sometimes association with migraine is patent foramen ovale with right to left shunt. Also, some intermittent cardiac arrhythmia, particularly paroxysmal atrial fibrillation could also be causing the patient's neurogenic symptoms. I would recommend to obtain contrast injection and do study associated with an echocardiogram to rule out any septal shunt at the atrium of the ventricle, particularly rule out any patent foramen ovale with right to left shunt. If there is any indication of cardiac arrhythmia, the patient could also be further evaluated by prolonged cardiac monitoring with either external Holter monitoring or insertion of rn cardiac, which is available from different pacemaker companies, and they can be utilized for several months or years. All of this was discussed with the patient. The patient agrees to have the bubble study, which would be the next step for ruling out any cardiac disorder. Thank you very much for letting me see this very nice patient. Job#: [id number] COLE
== END 2017-07-11 13:25 | disposition home or self-care (01) | DRG 62 ==
LOC: ER 18:00 → ERHOLD 22:13 → EDBEDREQSVC 23:16 → ICU 23:58 → MED/SURG 07-07 23:28
PROVIDERS: ADMIT Internal Medicine; ATTEND Internal Medicine
DX: I63.8 Other cerebral infarction (principal); G81.94 Hemiplegia, unspecified affecting left nondominant side; I48.92 Unspecified atrial flutter; R47.1 Dysarthria and anarthria; R41.841 Cognitive communication deficit; E03.9 Hypothyroidism, unspecified; R73.03 Prediabetes; F32.9 Major depressive disorder, single episode, unspecified; H70.11 Chronic mastoiditis, right ear; L40.9 Psoriasis, unspecified; M51.17 Intervertebral disc disorders with radiculopathy, lumbosacral region; K21.9 Gastro-esophageal reflux disease without esophagitis; I25.10 Atherosclerotic heart disease of native coronary artery without angina pectoris; G40.909 Epilepsy, unspecified, not intractable, without status epilepticus; N28.9 Disorder of kidney and ureter, unspecified; I70.1 Atherosclerosis of renal artery; F17.210 Nicotine dependence, cigarettes, uncomplicated; E78.5 Hyperlipidemia, unspecified; I80.9 Phlebitis and thrombophlebitis of unspecified site; R50.81 Fever presenting with conditions classified elsewhere; F43.10 Post-traumatic stress disorder, unspecified; G89.29 Other chronic pain; B00.9 Herpesviral infection, unspecified; F12.90 Cannabis use, unspecified, uncomplicated; E87.6 Hypokalemia; R90.82 White matter disease, unspecified; Z79.52 Long term (current) use of systemic steroids; Z79.01 Long term (current) use of anticoagulants; M43.22 Fusion of spine, cervical region; Z86.73 Personal history of transient ischemic attack (TIA), and cerebral infarction without residual deficits; Z88.2 Allergy status to sulfonamides; Z88.0 Allergy status to penicillin; I73.89 Other specified peripheral vascular diseases
CPT/HCPCS: 36415; 70450; 70544; 70551; 71045; 71046; 72141; 72148; 80048; 80053; 80061; 80307; 81001; 82948; 83036; 83735; 83880; 84132; 84443; 85025; 85610; 85651; 85730; 86592; 87040; 87086; 92523; 93005; 93306; 93308; 93880; 99285; J1650; J7030

== ENCOUNTER 2019-07-29 13:13 | Emergency (ER) | payer MEDICARE, OTHER ==
[~2019-07-29] VITALS: Ht 172.7 cm; Wt 66.2 kg
[~2019-07-29 13:13] MED LIST changes: +CLONIDINE HCL0.3 MG PO; +COREG3.125 MG PO; +PEPCID20 MG PO; +PLAVIX75 MG PO
--- OUTSIDE RECORDS SUMMARY | 2019-07-29 13:15 | XMS REPORT | Clinical Summary ---
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[employer] Name Role Phone Chuck Dhaliwal PCP Allergies Comments Active Allergy Reactions Severity Noted Date Rudolph Inhibitors Nausea Only Medium 07/13/2013 Acid reflux Citric Acid Nausea Only, Low 07/13/2013 Rash Leg pain Atorvastatin Other (See Medium 07/13/2013 Comments) Severe dizziness, severe headaches Lisinopril 07/13/2013 Penicillins Rash Medium 07/13/2013 Sulfa (Sulfonamide Rash Medium 07/13/2013 Antibiotics) Allergy to Zyban As well in same category as wellbutrin Gives pt seizures Bupropion Hcl 07/13/2013 Medications End Date Status Medication Sig Dispensed Refills Start Date Active estrogens, conjugated, Take 0.45 mg 0 (PREMARIN) 0.45 MG tablet by mouth daily. for 21 days then do not take for 7 days. Active levothyroxine (SYNTHROID, Take 100 mcg 0 LEVOTHROID) 100 MCG by mouth tablet daily. Active promethazine (PHENERGAN) Place 25 mg 0 25 MG suppository rectally every 6 (six) hours as needed for Nausea. Active mirtazapine (REMERON) 30 Take 30 mg by 0 MG tablet mouth nightly. Active HYDROcodone-acetaminophen Take 1 tablet 0 (NORCO 10-325) 10-325 mg by mouth per tablet every 6 (six) hours as needed for Pain. Active montelukast (SINGULAIR) Take 10 mg by 0 10 mg tablet mouth nightly. Active omeprazole (PRILOSEC) 20 Take 20 mg by 0 MG capsule mouth daily. Active folic acid (FOLVITE) 400 Take 400 mcg 0 MCG tablet by mouth daily. Active TiZANidine (ZANAFLEX) 4 Take 4 mg by 0 MG capsule mouth 3 (three) times daily. Active valACYclovir (VALTREX) Take 500 mg 0 500 MG tablet by mouth. Active rosuvastatin (CRESTOR) 5 Take 5 mg by 0 MG tablet mouth daily. Active sotalol AF (SOTALOL AF) Take 80 mg by 0 80 MG tablet mouth 2 (two) times daily. Active Problems Problem Noted Date CAD (coronary artery disease), [place] coronary artery 09/02/2013 HTN (hypertension), benign 09/02/2013 Family History Medical History Relation Name Comments COPD Father Depression Father Diabetes Father Heart disease Father Hypertension Father Stroke Father Depression Maternal Grandfather Heart disease Maternal Grandfather Hypertension Maternal Grandfather Depression Maternal Grandmother Heart disease Maternal Grandmother Hypertension Maternal Grandmother Depression Mother Diabetes Mother Heart disease Mother Hypertension Mother Kidney disease Mother Depression Paternal Grandfather Heart disease Paternal Grandfather Hypertension Paternal Grandfather Depression Paternal Grandmother Heart disease Paternal Grandmother Hypertension Paternal Grandmother COPD Sister Depression Sister Diabetes Sister Heart disease Sister Hypertension Sister Relation Name Status Comments Father Maternal Grandfather Maternal Grandmother Mother Paternal Grandfather Paternal Grandmother Sister Social History Date Tobacco Use Types Packs/Day Years Used Current Some Day Smoker Smokeless Tobacco: Never Used Alcohol Use Drinks/Week oz/Week Comments No Sex Assigned at Date Recorded Not on file Industry Job Start Date Occupation Not on file Not on file Not on file Travel End Travel History Travel Start No recent travel history available. Last Filed Vital Signs Not on file Plan of Treatment Not on file Results Not on fileafter 07/28/2018 Insurance Payer Benefit Subscriber ID Type Phone Address Plan / Group [facility] - AARP/MEDIC xxxxxxxxx MEDICARE MGD CARE ARE COMPLETE [phone] Advance Directives For more information, please contact: [facility] [address] [place] [address] Date Inactivated Comments Code Status Date Activated 07/13/2013 9:02 PM All possible means of suppor t, including: cardiac massage, mechanical ventilation, and defibrillation will be used to support life. Code ONE 07/13/2013 2:49 PM 07/13/2013 2:49 PM All possible means of suppor t including;cardiac massage, mechanical ventilation, and defibrillation will be used to support life. Code ONE 07/13/2013 11:48 AM
--- OUTSIDE RECORDS SUMMARY | 2019-07-29 13:15 | XMS REPORT | Continuity of Care Document ---
Author Author [facility] t Organization [facility] t Address [address] [place] [address] Phone Unavailable Care Team Providers Care Airborne Operations Name Role Phone NORI ROBERTO, KRISTOPHER PCP Joey Alvarez Attphys Unavailable Laila CAMARENA, M Josefina Attphys Unavailable P[facility], Care [facility] Acute Attphys Unavailable Chidi Rodriguez Attphys Unavailable KRISTOPHER JULIO Attphys Unavailable KRISTOPHER JULIO Admphys Unavailable Payers Payer Name Policy Type Policy Number Effective Date Expiration Date [facility] [id number] 2013 00:00:[address] [facility] [employer] [id number] 2011 00:00:[address] [facility] Problems Condition Name Condition Details Condition Category Status Onset Date Resolution Date Last Treatment Date Treating Clinician Comments Source CAD (coronary artery disease), yuhaaviatam coronary artery CAD (coronary artery disease), yuhaaviatam coronary artery Disease Active 2013-09-02 00:00:00 [facility] HTN (hypertension), benign HTN (hypertension), benign Disease Active 2013-09-02 00:00:00 [facility] Allergies, Adverse Reactions, Alerts Allergy Name Allergy Type Status Severity Reaction(s) Onset Date Inacti ve Date Treating Clinician Comments Source bupropion HCl Allergy to Substance Active 2017-07-06 00:00: [address] [facility] tramadol HCl Allergy to Substance Active 2017-07-06 00:00:[address] [facility] atorvastatin calcium Propensity to adverse reactions Active MAKES HER LEGS HURT 2017-07-06 00:00:[address] [facility] Penicillin Allergy to Substance Active 2017-07-06 00:00:[address] [facility] Sulfa (Sulfonamide Antibiotics) Allergy to Substance Active 2017-07-06 00:00:[address] [facility] Rudolph Inhibitors Drug Intolerance Active Nausea Only 2013-07-13 00:0 0:00 [facility] Citric Acid Drug Allergy Active Nausea Only, Rash 2013-07-13 00 :00:00 Acid reflux [facility] Atorvastatin Drug Intolerance Active Other (See Comments) 2013-07-13 00:00:00 Leg pain [facility] Lisinopril Drug Allergy Active 2013-07-13 00:00:00 Severe dizziness, severe headaches [facility] Penicillins Drug Allergy Active Rash 2013-07-13 00:00:00 [facility] Sulfa (Sulfonamide Antibiotics) Drug Allergy Active Rash 2013-07-13 00:00:00 [facility] Bupropion Hcl Drug Allergy Active 2013-07-13 00:00:00 Allergy to Zyban As well in same category as wellbutrin Gives pt seizures [facility] Family History Family Member Diagnosis Comments Start Date Stop Date Source Natural father COPD [facility] Natural father Depression [facility] Natural father Diabetes [facility] Natural father Heart disease [facility] Natural father Hypertension [facility] Natural father Stroke [facility] Maternal grandfather Depression [facility] Maternal grandfather Heart disease [facility] Maternal grandfather Hypertension [facility] Maternal grandmother Depression [facility] Maternal grandmother Heart disease [facility] Maternal grandmother Hypertension [facility] Natural mother Depression [facility] Natural mother Diabetes [facility] Natural mother Heart disease [facility] Natural mother Hypertension [facility] Natural mother Kidney disease [facility] Paternal grandfather Depression [facility] Paternal grandfather Heart disease [facility] Paternal grandfather Hypertension I [facility] Paternal grandmother Depression [facility] Paternal grandmother Heart disease [facility] Paternal grandmother Hypertension CH [facility] Natural sister COPD [facility] Natural sister Depression [facility] Natural sister Diabetes [facility] Natural sister Heart disease [facility] Natural sister Hypertension [facility] Social History Social Habit Start Date Stop Date Quantity Comments Source Sex Assigned At [facility] Smoking Status Start Date Stop Date Source Current some day smoker 2013-07-14 00:00:00 [facility] Medications Ordered Medication Name Filled Medication Name Start Date Stop Da te Current Medication? Ordering Clinician Indication Dosage Frequency Signature (SIG) Comments Components Source TiZANidine (ZANAFLEX) 4 MG capsule 2013-07-13 12:35:05 Y es 4mg Q.[id number] Take 4 mg by mouth 3 (three) times daily. [facility] valACYclovir (VALTREX) 500 MG tablet 2013-07-13 12:35:05 Ye s 500mg Take 500 mg by mouth. [facility] rosuvastatin (CRESTOR) 5 MG tablet 2013-07-13 12:35:05 Yes 5mg QD Take 5 mg by mouth daily. [facility] sotalol AF (SOTALOL AF) 80 MG tablet 2013-07-13 12:35:05 Ye s 80mg Q.5D Take 80 mg by mouth 2 (two) times daily. [facility] estrogens, conjugated, (PREMARIN) 0.45 MG tablet 2013-07-13 12:35:04 Yes .45mg QD Take 0.45 mg by mouth daily. for 21 days then do not take for 7 days. [facility] levothyroxine (SYNTHROID, LEVOTHROID) 100 MCG tablet 2 12:35:04 Yes 100ug QD Take 100 mcg by mouth daily. [facility] promethazine (PHENERGAN) 25 MG suppository 2013-07-13 12:35:[address] 25 mg rectally every 6 (six) hours as needed for Nausea. [facility] mirtazapine (REMERON) 30 MG tablet 2013-07-13 12:35:04 Yes 30mg QD Take 30 mg by mouth nightly. [facility] [place] HYDROcodone-acetaminophen (NORCO 10-325) 10-325 mg per table t 2013-07-13 12:35:04 Yes 1{tbl} Take 1 tab let by mouth every 6 (six) hours as needed for Pain. [facility] montelukast (SINGULAIR) 10 mg tablet 2013-07-13 12:35:04 Ye s 10mg QD Take 10 mg by mouth nightly. [facility] omeprazole (PRILOSEC) 20 MG capsule 2013-07-13 12:35:04 Yes 20mg QD Take 20 mg by mouth daily. [facility] folic acid (FOLVITE) 400 MCG tablet 2013-07-13 12:35:04 Yes 400ug QD Take 400 mcg by mouth daily. [facility] Amlodipine Besylate 5 Mg Tablet Amlodipine Besylate 5 Mg Tablet Yes 5 Daily [facility] Carvedilol (Coreg) 3.125 Mg Tab Carvedilol (Coreg) 3.125 Mg Tab Yes 3.125 Every [address] [facility] Celecoxib (Celebrex*) 100 Mg Capsule Celecoxib (Celebrex*) 100 Mg C apsule Yes [address] [facility] Clonidine Hcl 0.3 Mg Tablet Clonidine Hcl 0.3 Mg Tablet Yes .3 Every 8 Hours [facility] Clopidogrel Bisulfate (Plavix) 75 Mg Tablet Clopidogre l Bisulfate (Plavix) 75 Mg Tablet Yes [address] [facility] Cyclobenzaprine Hcl (Flexeril) 5 Mg Tablet Cyclobenzap rine Hcl (Flexeril) 5 Mg Tablet Yes Unknown Dose [facility] Duloxetine Hcl (Cymbalta) 60 Mg Capsule. Duloxetine Hcl (Cymbalta) 60 Mg Capsule.dr Yes 60 Daily [facility] Famotidine (Pepcid) 20 Mg Tablet Famotidine (Pepcid) 20 Mg Tablet Yes [address] [facility] Fesoterodine Fumarate (Toviaz) 4 Mg Tab.er.24h Fesoter odine Fumarate (Toviaz) 4 Mg Tab.er.24h Yes 4 Daily [facility] Folic Acid 1 Mg Tablet Folic Acid 1 Mg Tablet Yes [address] [facility] Hydrocodone Bit/Acetaminophen (Minden 10-325 Tablet) 1 Each Tablet Hydrocodone Bit/Acetaminophen (Minden 10-325 Tablet) 1 Each Tablet Yes [address] [facility] Ibuprofen 200 Mg Capsule Ibuprofen 200 Mg Capsule Yes [address] [facility] Levothyroxine Sodium 100 Mcg Tablet Levothyroxine Sodium 100 Mcg Tabl et Yes 100 Daily [facility] Mirtazapine (Remeron) 30 Mg Tab.rapdis Mirtazapine (Remeron) 30 Mg Tab.rapdis Yes [address] [facility] Montelukast Sodium (Singulair) 10 Mg Tablet Montelukas t Sodium (Singulair) 10 Mg Tablet Yes 10 Bedtime [facility] Valacyclovir Hcl (Valtrex) 500 Mg Tab Valacyclovir Hcl (Valtrex) 50 0 Mg Tab Yes [address] [facility] Estrogens, Conjugated (Premarin) 0.45 Mg Tablet, 0.45 Mg Oral Estrogens, Conjugated (Premarin) 0.45 Mg Tablet, 0.45 Mg Oral 2017-07-11 00:00:0 0 No .[address] [facility] Omeprazole 20 Mg Capsule., 20 Mg Oral Omeprazole 20 Mg Cap jonatan., 20 Mg Oral 2017-07-11 00:00:00 No [address] [facility] Atorvastatin Calcium 20 Mg Tablet, 20 Mg Oral Atorvast atin Calcium 20 Mg Tablet, 20 Mg Oral 2012-10-14 00:00:00 No [address] [facility] Procedures Procedure Date / Time Performed Performing Clinician [facility] Magnetic resonance angiography of head without contrast 2017 00:00:[address] [facility] Magnetic resonance imaging of cervical spine without c ontrast 2017-07-09 00:00:00 NORILILIAIS [facility] Magnetic resonance imaging of lumbar spine without contrast 2017-07-09 00:00:[address] [facility] X-ray of chest, two views 2017-07-08 00:00:00 KRISTOPHER JULIO I [facility] Magnetic resonance imaging of brain without contrast 2017-06 00:00:[address] [facility] Computed tomography of brain without radiopaque contrast 201 09-27-13 00:00:00 SAN[address] V [facility] Encounters Start Date/Time End Date/Time Encounter Type Admission Type Attendi [facility] Care Department Encounter ID Source 2019-05-28 00:00:00 2019-05-28 00:00:00 Telephone Josefina Ulloa [facility] [id number] 2019-05-27 10:56:08 2019-05-27 11:57:01 Urgent Care P[facility], Acute Care Clinic Critical access hospital [facility] [id number] 2017-07-06 22:13:00 2017-07-11 13:25:00 Discharged Inpatient [address] 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 A radiopaque foreign body is not visualized Signed By: Cuco Lopez MD Signed AT: 06/21/192034 Chest Single View 2018-12-17 17:52:00 [place] [address] RADIOLOGY SERVICES REPORT Name: ELIANA SAMUELS Acct Number: [id number] :1965 Age:53 Sex:F Ord Phys: Alexander Ruelas PAC Unit Number: [id number] [facility] Dr: U Status: [facility] ER ER Exam Date: 12/17/18 EXAM DESCRIPTION: RADChest Single View12/17/2018 4:18 pm CLINICAL HISTORY: abd pain COMPARISON: 2009 FINDINGS: The lungs appear clear of acute infiltrate. The heart is normal size IMPRESSION: No acute abnormalities displayed Signed By: Cuco Lopez MD Signed AT: 12/17/181751 Angio Aorta For Dissection 2018-12-17 17:51:00 [place] [address] RADIOLOGY SERVICES REPORT Name: ELIANA SAMUELS Acct Number: [id number] :[id number] Age:53 Sex:F Ord Phys: Alexander Ruelas PAC Unit Number: [id number] [facility] Dr: U Status: [facility] ER ER Exam Date: 12/17/18 EXAM DESCRIPTION: CT - Angio Aorta For Dissection - 12/17/2018 5:32 pm CLINICAL HISTORY: . Chest and abd pain COMPARISON: None TECHNIQUE: Computed tomography angiography of the chest, abdomen pelvis were obtained. 100 cc Isovue 370 was administered intravenously. Coronal and sagittal reconstruction were performed. MIP 3D reconstruction was performed All CT scans are performed using dose optimization technique as appropriate and may include automated exposure control or mA/KV adjustment according to patient size. FINDINGS: An aortic dissection is not seen. An aortic aneurysm is not displayed. The celiac, SMA and CAIT are patent . The proximal left renal artery is patent. Most of the remainder of the left main renal artery is unopacified A lung consolidation is not present. A pericardial effusion is not seen. A pleural effusion is not noted. Fatty liver Spleen, adrenals and pancreas appear unremarkable. Marked left renal cortical thinning. Left kidney is small. Nonobstructing left renal calculus is present. Borderline mild right hydronephrosis. No genitourinary calculus. The appendix is normal. There no evidence diverticulitis. No ascites is noted. Spondylosis L5-S1 IMPRESSION: Negative for an aortic dissection. 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 Borderline mild right hydronephrosis without an obstructing genitourinary calculus Signed By: Cuco Lopez MD Signed AT: 12/17/18 1752 Urine dipstick testing at [id number] 2018-12-17 17:12:00 Test Item Urine specific gravity measurement (test code = 2965-2) 1.005 1.005-1.030 Urine glucose detection (test code = 2349-9) Negative NEG Urine Ketones (test code = UKET) NEGATIVE NEG Urine blood detection (test code = 75261-7) Negative NEG Urine pH (test code = 2756-5) 6.0 5.0-7.0 Urinalysis with microscopy (test code = 86809-7) NEGATIVE NEG Urine Nitrate (test code = UNIT) NEGATIVE NEG Urine Leukocyte Esterase (test code = UESTR) NEGATIVE NEG Comment Bed:7 aac NEG NEG NEG NEG NEG 6.0 NEG Y 1.005Troponin I.cardiac [Mass/volume] in Serum or [id number] 16:24:00* Test Item Value Reference Range Interpretation Comments Troponin I.cardiac [Mass/volume] in Serum or Plasma (t est code = 61845-0) 0.03 ng/mL 0.0-0.045 Test Ordered to Rule Out VTE/DVT? N Comment Bed:7 Test Ordered to Rule Out VTE/D VT? NLipase [Enzymatic activity/volume] in Serum or [id number] 16:24:00* Test Item Value Reference Range Interpretation Comments Lipase [Enzymatic activity/volume] in Serum or Plasma (test code = 3040-3) 76 U/L 73-393 Test Ordered to Rule Out VTE/DVT? N Comment Bed:7 Test Ordered to Rule Out VTE/D VT? NComplete blood count (CBC) with automated white blood cell (WBC) [id number] 16:17:00* Test Item Value Reference Range Interpretation Comments White blood cell count (test code = FQW7997) 10.3 4.3-10.9 Blood erythrocytes count (number/volume) (test code = 62602- 1) 4.38 M/ul 3.86-4.86 Hemoglobin measurement (test code = JPF9941) 12.9 g/dL 12.0-15.0 Blood hematocrit (volume fraction) (test code = 69808-8) 39.1 % 36.0-45.0 MCV (test code = VMZ2897) 89.2 fL 80-100 29 .5 MCHC (test code = MCHC) 33.0 g/dL 32.0-36.0 Platelets (test code = PLT) 289 152-406 Red Cell Distribution Width (test code = RDW) 15.4 % 12.1-15. 2 H Blood platelet mean volume (test code = 46947-2) 8.1 fL 7.6-1 1.3 Neutrophils % (test code = TARUN%) 53.4 % 41.7-73.7 Lymphocytes/leuk NFr Bld (test code = 37864-0) 37.7 % 15.3-44 .8 Monocyte percentage (test code = YJG0370) 6.7 % 3.3-12.3 1.1 Basophil % (test code = 71286-2) 1.1 % 0-1.3 Absolute neutrophil count (test code = QDD7376) 5.5 1.8-8. 0 Absolute lymphocyte count (test code = 60006-5) 3.9 0.7-4. 9 Absolute monocyte count (test code = KHA9296) 0.7 0.1-1.3 0.1 Absolute Basophils (test code = BASA) 0.1 0-0.5 Prothrombin time (PT) with international normalized ratio (INR)2018-12-17 16:17:00* Test Item Value Reference Range Interpretation Comments PT Prothrombin Time (test code = PROTIME) 11.6 s 9.5-12.5 INR in Blood by Coagulation assay (test code = 53581-7) 0.98 Monitor pts using INR value (not prothrombin time) INR Coumadin Therapy: Low Range (prophylaxis) 2.0-3.0 High Range (high risk of clot formation) 2.5-3.5 NBasic Metabolic [id number] 16:13:00* Test Item Value Reference Range Interpretation Comments Serum or plasma sodium measurement (moles/volume) (ehsan t code = 2951-2) 140 mmol/L 136-145 Potassium [Moles/volume] in Serum or Plasma (test code = 282 3-3) 3.3 mmol/L 3.5-5.1 L Chloride [Moles/volume] in Serum or Plasma (test code = 2075 -0) 107 mmol/L 98-107 Carbon dioxide, total [Moles/volume] in Serum or Plasm a (test code = 8-9) 26 mmol/L 21-32 Glucose [Mass/volume] in Serum or Plasma (test code = 2345-7) 12 3 mg/dL 74-106 H Urea nitrogen [Mass/volume] in Serum or Plasma (test code = 3094-0) 14 mg/dL 7-18 Creatinine [Mass/volume] in Serum or Plasma (test code = 216 0-0) 0.92 mg/dL 0.55-1.3 Glomerular Filtration Rate (test code = GFR) 64 mL =/>90 L FOR CHRONIC KIDNEY DISEASE: GFR STAGE DESCRIPTION =/>90 STAGE 1 NORMAL--OR-- MINIMAL KIDNEY DAMAGE WITH NORMAL GFR 60-89 STAGE 2 MILD DECREASE IN GFR 30-59 STAGE 3 MODERATE DECREASE IN GFR 15-29 STAGE 4 SEVERE DECREASE IN GFR <15 STAGE 5 KIDNEY FAILURE The Glomerular Filtration Rate (GFR) has been calculated using the IDMS- Traceable MDRD Study Equation. Calcium [Mass/volume] in Serum or Plasma (test code = 51152- 6) 8.9 mg/dL 8.5-10.1 Liver (Hepatic) [id number] 16:13:00* Test Item Value Reference Range Interpretation Comments Aspartate aminotransferase [Enzymatic ac tivity/volume] in Serum or Plasma by With P-5 (test code = 90580-5) 19 U/L 15-37 Alanine aminotransferase [Enzymatic acti vity/volume] in Serum or Plasma by With P-5'- (test code = 1743-4) 24 U/L 12-78 Alkaline phosphatase [Enzymatic activity /volume] in Serum or Plasma (test code = 6768-6) 103 U/L 45-117 Bilirubin.total [Mass/volume] in Serum or Plasma (test code = 1974-2) 0.3 mg/dL 0.2-1.0 Bilirubin.direct [Mass/volume] in Serum or Plasma (ehsan t code = 1967-7) 0.1 mg/dL 0-0.2 Protein [Mass/volume] in Serum or Plasma (test code = 2885-2) 6. 9 g/dL 6.4-8.2 Albumin [Mass/volume] in Serum or Plasma by Bromocresol purple (BCP) dye binding meth (test code = 69866-4) 3.6 g/dL 3.4-5.0 Globulin (test code = GLOB) 3.3 g/dL 2.3-3.5 Albumin/Globulin Ratio (test code = A/G) 1.1 1.1-1.8 Natriuretic peptide.B prohormone N-Terminal [Mass/volume] in Serum or Plasma 2018-12-17 16:13:00* Test Item Value Reference Range Interpretation Comments Natriuretic peptide.B prohormone N-Termi nal [Mass/volume] in Serum or Plasma (test code = 56883-2) 53 pg/mL <125 Magnesium [Mass/volume] in Serum or Dowxyk3925-35-18 16:13:00* Test Item Value Reference Range Interpretation Comments Magnesium [Mass/volume] in Serum or Plasma (test code = 1912 3-9) 2.0 mg/dL 1.8-2.4 Sodium [id number] 08:02:00* Test Item Value Reference Range Interpretation Comments Sodium Level (test code = 2951-2) 143 136-[address] [facility] [id number] 08:02:00* Test Item Value Reference Range Interpretation Comments Potassium Level (test code = 2823-3) 3.5 3.5-5.[address] [facility]Chloride [id number] 08:02:00* Test Item Value Reference Range Interpretation Comments Chloride Level (test code = 2075-0) 109 98-[address] HospitalCarbon Dioxide [id number] 08:02:00* Test Item Value Reference Range Interpretation Comments Carbon Dioxide Level (test code = 2028-9) 25 22-[address] HospitalAnion [id number] 08:02:00* Test Item Value Reference Range Interpretation Comments Anion Gap (test code = 49497-6) 12.5 8-[address]Blood Urea Ooadwerx1076-77-01 08:02:00* Test Item Value Reference Range Interpretation Comments Blood Urea Nitrogen (test code = 3094-0) 15 7-[address] [facility] HospitalCreatinine2018-05-19 08:02:00* Test Item Value Reference Range Interpretation Comments Creatinine (test code = 2160-0) 0.70 0.57-1.[address] [facility] HospitalBUN/Creatinine Wkjmo9936-83-07 08:02:00* Test Item Value Reference Range Interpretation Comments BUN/Creatinine Ratio (test code = 3097-3) 21 6-[address] [facility] HospitalEstimat Glomerular Filtration Rate 2017-07-11 08:02:00* Test Item Value Reference Range Interpretation Comments Estimat Glomerular Filtration Rate (test code = 60158-1) 60- >60 Ranges were taken from the National Kidney Disease Education Program and the [facility] literature.Reference ranges:60 or greater: Byuiag29-12 ( for 3 consecutive months): Chronic kidney disease 15 or less: Kidney failureCH[facility] HospitalGlucose [id number] 08:02:00* Test Item Value Reference Range Interpretation Comments Glucose Level (test code = AMO8550) 127 74-[address] HospitalCalcium [id number] 08:02:00* Test Item Value Reference Range Interpretation Comments Calcium Level (test code = 64438-8) 9.2 8.4-10.[address] HospitalBlood Pafvywp5600-88-80 16:01:00* Test Item Value Reference Range Interpretation Comments Blood Culture (test code = 12982556) NO GROWTH AFTER [address] [facility] HospitalTotal [id number] 07:24:00* Test Item Value Reference Range Interpretation Comments Total Bilirubin (test code = 1975-2) 0.3 0.2-1.[address] [facility] HospitalAspartate Amino Transf (AST/SGOT) 2017-07-10 07:24:00* Test Item Value Reference Range Interpretation Comments Aspartate Amino Transf (AST/SGOT) (test code = Aspartate Amino Transf (AST/SGOT)) 15 5-[address] [facility] HospitalAlanine Aminotransferase (ALT/SGPT) 2017-07-10 07:24:00* Test Item Value Reference Range Interpretation Comments Alanine Aminotransferase (ALT/SGPT) (test code = 1742-6) 20 0-55 [facility] [id number] 07:24:00* Test Item Value Reference Range Interpretation Comments Total Protein (test code = 2885-2) 6.4 6.5-8.[address] [facility] HospitalAlbumin2018-05-18 07:24:00* Test Item Value Reference Range Interpretation Comments Albumin (test code = 1751-7) 3.6 3.5-5.[address] HospitalGlobulin2018-05-18 07:24:00* Test Item Value Reference Range Interpretation Comments Globulin (test code = 76477-9) 2.8 2.3-3.[address] [facility] HospitalAlbumin/Globulin [id number] 07:24:00 * Test Item Value Reference Range Interpretation Comments Albumin/Globulin Ratio (test code = 1759-0) 1.3 0.8-2.[address] HospitalAlkaline Rfrzadnjrvo2433-36-00 07:24:00* Test Item Value Reference Range Interpretation Comments Alkaline Phosphatase (test code = 6768-6) 79 40-[address] HospitalErythrocyte Sedimentation [id number] 10:13:00* Test Item Value Reference Range Interpretation Comments Erythrocyte Sedimentation Rate (test code = 4537-7) 14 0- [address] [facility] HospitalMagnesium [id number] 08:18:00* Test Item Value Reference Range Interpretation Comments Magnesium Level (test code = 81540-6) 2.2 1.3-2.[address] HospitalWhite Blood [id number] 06:55:00* Test Item Value Reference Range Interpretation Comments White Blood Count (test code = 6690-2) 8.77 4.8-10.[address] [facility] [facility] Blood Vhjji1707-80-40 06:55:00* Test Item Value Reference Range Interpretation Comments Red Blood Count (test code = 789-8) 4.37 3.6-5.[address] [facility] [facility] HospitalHemoglobin2018-05-17 06:55:00* Test Item Value Reference Range Interpretation Comments Hemoglobin (test code = 32165-4) 12.8 12.0-16.[address] HospitalHematocrit2018-05-17 06:55:00* Test Item Value Reference Range Interpretation Comments Hematocrit (test code = 4544-3) 37.7 34.2-44.[address] [facility] HospitalMean Corpuscular Xkfygx7052-05-34 06:55:00* Test Item Value Reference Range Interpretation Comments Mean Corpuscular Volume (test code = 787-2) 86.3 81-[address] [facility] [facility] [facility] HospitalMean Corpuscular Skfpqfmsic0876-05-96 06:55:00* Test Item Value Reference Range Interpretation Comments Mean Corpuscular Hemoglobin (test code = 785-6) 29.3 28-[address] [facility] [facility] [facility] HospitalMean Corpuscular Hemoglobin Concent 2017-07-09 06:55:00* Test Item Value Reference Range Interpretation Comments Mean Corpuscular Hemoglobin Concent (test code = 786-4) 34.0 31-[address] [facility] HospitalRed Cell Distribution Zylae7832-92-26 06:55:00* Test Item Value Reference Range Interpretation Comments Red Cell Distribution Width (test code = 60586-9) 14.6 11.7 -14.[address] HospitalPlatelet Scbwa8955-07-79 06:55:00* Test Item Value Reference Range Interpretation Comments Platelet Count (test code = 777-3) 229 140-[address] [facility] HospitalNeutrophils (%) (Auto)2017-07-09 06:55:00 * Test Item Value Reference Range Interpretation Comments Neutrophils (%) (Auto) (test code = 87594-4) 59.0 38.7-80.[address] HospitalLymphocytes (%) (Auto)2017-07-09 06:55:00 * Test Item Value Reference Range Interpretation Comments Lymphocytes (%) (Auto) (test code = 736-9) 29.9 18.0-39.[address] [facility] HospitalMonocytes (%) (Auto)2017-07-09 06:55:00* Test Item Value Reference Range Interpretation Comments Monocytes (%) (Auto) (test code = 5905-5) 9.8 4.4-11.[address] [facility] HospitalEosinophils (%) (Auto)2017-07-09 06:55:00 * Test Item Value Reference Range Interpretation Comments Eosinophils (%) (Auto) (test code = 713-8) 0.8 0.0-6.[address] [facility] HospitalBasophils (%) (Auto)2017-07-09 06:55:00* Test Item Value Reference Range Interpretation Comments Basophils (%) (Auto) (test code = 706-2) 0.2 0.0-1.[address] HospitalIM GRANULOCYTES %2017-07-09 06:55:00* Test Item Value Reference Range Interpretation Comments IM GRANULOCYTES % (test code = IM GRANULOCYTES %) 0.3 0.0- 1.[address] [facility] HospitalNeutrophils # (Auto)2017-07-09 06:55:00* Test Item Value Reference Range Interpretation Comments Neutrophils # (Auto) (test code = 751-8) 5.2 2.1-6.[address] [facility] HospitalLymphocytes # (Auto)2017-07-09 06:55:00* Test Item Value Reference Range Interpretation Comments Lymphocytes # (Auto) (test code = 53096-7) 2.6 1.0-3.[address] [facility] HospitalMonocytes # (Auto)2017-07-09 06:55:00* Test Item Value Reference Range Interpretation Comments Monocytes # (Auto) (test code = 742-7) 0.9 0.2-0.[address] [facility] HospitalEosinophils # (Auto)2017-07-09 06:55:00* Test Item Value Reference Range Interpretation Comments Eosinophils # (Auto) (test code = 711-2) 0.1 0.0-0.[address] [facility] HospitalBasophils # (Auto)2017-07-09 06:55:00* Test Item Value Reference Range Interpretation Comments Basophils # (Auto) (test code = 704-7) 0.0 0.0-0.[address] [facility] HospitalAbsolute Immature Granulocyte (auto 2017-07-09 06:55:00* Test Item Value Reference Range Interpretation Comments Absolute Immature Granulocyte (auto (ehsan t code = Absolute Immature Granulocyte (auto) 0.03 0-0.[address] HospitalUrine MLB6855-85-80 14:24:00* Test Item Value Reference Range Interpretation Comments Urine WBC (test code = 5821-4) NONE 0-[address] HospitalUrine HXL6509-10-44 14:24:00* Test Item Value Reference Range Interpretation Comments Urine RBC (test code = 55408-6) 0-5 0-[address] [facility] HospitalUrine Hjvidspk0652-07-08 14:24:00* Test Item Value Reference Range Interpretation Comments Urine Bacteria (test code = 75927-1) RARE NONE [facility] HospitalUrine Epithelial Fksej0036-06-81 14:24:00 * Test Item Value Reference Range Interpretation Comments Urine Epithelial Cells (test code = 47416-0) RARE NONE [facility] HospitalUrine Coarse Granular Diyww9340-64-51 14:24:00* Test Item Value Reference Range Interpretation Comments Urine Coarse Granular Casts (test code = 19323-0) 6-10 >[address] [facility] HospitalUrine Udadv6604-30-04 14:14:00* Test Item Value Reference Range Interpretation Comments Urine Color (test code = 5778-6) YELLOW YELLOW [facility] HospitalUrine Ivdztpz5059-18-73 14:14:00* Test Item Value Reference Range Interpretation Comments Urine Clarity (test code = 46481-1) SL CLOUDY CLEAR [facility] HospitalUrine Specific Uresryn1108-50-29 14:14:00 * Test Item Value Reference Range Interpretation Comments Urine Specific Temple (test code = 5811-5) 1.030 1.010-1.[address] HospitalUrine cV0565-25-03 14:14:00* Test Item Value Reference Range Interpretation Comments Urine pH (test code = 61634-4) 5 5-[address] [facility] HospitalUrine Leukocyte Edbphbkv0403-34-48 14:14:00* Test Item Value Reference Range Interpretation Comments Urine Leukocyte Esterase (test code = 5799-2) NEGATIVE NEGATIVE [facility] Dgidxap1805-33-99 14:14:00* Test Item Value Reference Range Interpretation Comments Urine Nitrite (test code = 65248-8) NEGATIVE NEGATIVE [facility] HospitalUrine Vpwvrcm9454-73-15 14:14:00* Test Item Value Reference Range Interpretation Comments Urine Protein (test code = 5804-0) 2+ NEGATIVE H [facility] Glucose (UA)2017-07-08 14:14:00* Test Item Value Reference Range Interpretation Comments Urine Glucose (UA) (test code = 2349-9) NEGATIVE NEGATIVE [facility] HospitalUrine Wdevbre6747-82-26 14:14:00* Test Item Value Reference Range Interpretation Comments Urine Ketones (test code = 29319-5) 3+ NEGATIVE H [facility] HospitalUrine Zruxkmuekpsa9152-71-85 14:14:00* Test Item Value Reference Range Interpretation Comments Urine Urobilinogen (test code = 94013-9) 0.2 0.2-[address] HospitalUrine Jycdzpnpx3133-13-72 14:14:00* Test Item Value Reference Range Interpretation Comments Urine Bilirubin (test code = 1978-6) 2+ NEGATIVE H [facility] Tfbhp1286-34-07 14:14:00* Test Item Value Reference Range Interpretation Comments Urine Blood (test code = 60437-9) 2+ NEGATIVE H [facility] HospitalUrine Opiates Lusffp0174-60-29 08:04:00* Test Item Value Reference Range Interpretation Comments Urine Opiates Screen (test code = 28697-7) POSITIVE NEGATIVE H This test provides only a screen. Positive results should be repeated by a confi rmatory test.[facility] HospitalUrine Barbiturates Screen 2017-07-08 08:04:00* Test Item Value Reference Range Interpretation Comments Urine Barbiturates Screen (test code = 177319206) NEGATIVE NEGA TIVE [facility] HospitalUrine Phencyclidine Rxegly0378-59-08 08:04:00* Test Item Value Reference Range Interpretation Comments Urine Phencyclidine Screen (test code = 05352-2) NEGATIVE NEGAT BIANKA [facility] HospitalUrine Amphetamines Ivledj6728-63-29 08:04:00* Test Item Value Reference Range Interpretation Comments Urine Amphetamines Screen (test code = 26984-7) NEGATIVE NEGATI VE [facility] HospitalUrine Methamphetamines Ttzrrn4865-85-42 08:04:00* Test Item Value Reference Range Interpretation Comments Urine Methamphetamines Screen (test code = Urine Metha mphetamines Screen) NEGATIVE NEGATIVE [facility] HospitalUrine Benzodiazepines Oyblab3544-89-42 08:04:00* Test Item Value Reference Range Interpretation Comments Urine Benzodiazepines Screen (test code = 34968-4) NEGATIVE NEG ATIVE [facility] HospitalUrine Cocaine Ceqmgo2947-88-67 08:04:00* Test Item Value Reference Range Interpretation Comments Urine Cocaine Screen (test code = 3398-5) NEGATIVE NEGATIVE [facility] HospitalUrine Cannabinoids Stxmlz9826-12-28 08:04:00* Test Item Value Reference Range Interpretation Comments Urine Cannabinoids Screen (test code = 11984-0) POSITIVE NEGATI VE H This test provides only a screen. Positive results should be repeated by a confi rmatory test.[facility] HospitalU[facility] Methadone Screen 2017-07-08 08:04:00* Test Item Value Reference Range Interpretation Comments Urine Methadone Screen (test code = 69421-2) NEGATIVE NEGATIVE THESE RESULTS ARE FOR MEDICAL TREATMENT ONLYTHIS REPORT CONTAINS UNCONFIR MED SCREENING RESULTS*POSITIVE RESULTS WILL BE CONFIRMED BY REFERENCE LAB UPON R EQUEST CUT-OFFDRUG CLASS CONCENTRATION ng/mLAmphetamines 1000Methamphetamines 1000Cocaine Metabolite 300Opiate 300Phencyc lidine 25Cannabinoid 50Barbiturates 300Benzodiazepine 300Methadone 300[facility] Natri[facility]tic Nnevqwk9816-70-67 07:33:00* Test Item Value Reference Range Interpretation Comments B-Type Natriuretic Peptide (test code = 49730-6) 62.7 0-[address] [facility] HospitalRapid Plasma Nwvdpq9272-95-22 06:58:00* Test Item Value Reference Range Interpretation Comments Rapid Plasma Reagin (test code = 76953-1) Non Reactive Non Reactive Performed at: [facility] [id number] Director: Chris Davis MD, Phone: [phone] St. [facility] HospitalHemoglobin A1c Kjyvcpi0575-11-26 14:28:00* Test Item Value Reference Range Interpretation Comments Hemoglobin A1c Percent (test code = Hemoglobin A1c Percent) 5.8 4.0-7.[address] HospitalThyroid Stimulating Hormone (TSH) 2017-07-07 11:37:00* Test Item Value Reference Range Interpretation Comments Thyroid Stimulating Hormone (TSH) (test code = 59882-3) 0.402 0.350-[address] HospitalTriglycerides Dfzkp6992-82-61 11:18:00* Test Item Value Reference Range Interpretation Comments Triglycerides Level (test code = 2571-8) 136 0-[address] HospitalCholesterol Eysvd7505-38-87 11:18:00* Test Item Value Reference Range Interpretation Comments Cholesterol Level (test code = 2093-3) 113 0-199 Less than 200 mg/dL Low Luor576 - 239 mg/dL Borderline Eexw956 m g/dl and greater High Risk [facility] HospitalLDL Fqimadtwber4687-29-54 11:18:00* Test Item Value Reference Range Interpretation Comments LDL Cholesterol (test code = 2089-1) 52 60-[address] [facility] HospitalHDL Tenlvmcfeym0704-74-48 11:18:00* Test Item Value Reference Range Interpretation Comments HDL Cholesterol (test code = 2085-9) 34 40-[address] HospitalCholesterol/HDL Lucwl0226-30-44 11:18:00 * Test Item Value Reference Range Interpretation Comments Cholesterol/HDL Ratio (test code = 9830-1) 3.3 3.0-3.[address] [facility] HospitalBedside Xyarwoh4141-52-60 21:19:00* Test Item Value Reference Range Interpretation Comments Bedside Glucose (test code = 47902-4) 106 70-120 Meter ID: [id number] St. [facility] HospitalProthrombin Time 2017-07-06 19:45:00* Test Item Value Reference Range Interpretation Comments Prothrombin Time (test code = 5902-2) 12.2 11.9-14.[address] [facility] HospitalProthromb Time International Ratio 2017-07-06 19:45:00* Test Item Value Reference Range Interpretation Comments Prothromb Time International Ratio (test code = 6301-6) 0.98 Oral Anticoagulant Therapy INR Values:1. Low Intensity Therapy 1.5 - 2.02 . Moderate Intensity Therapy 2.0 - 3.03. High Intensity Therapy(1) 2.5 - 3. 54. High Intensity Therapy(2) 3.0 - 4.05. Panic Value INR > 5.[address] [facility] HospitalActivated Partial Thromboplast Time 2017-07-06 19:45:00* Test Item Value Reference Range Interpretation Comments Activated Partial Thromboplast Time (test code = 68677-7) 28.5 23.8-35.[address] [facility] HospitalMRA HEAD [facility] [address] [place] [address] Patient Name: ELIANA SAMUELS [facility] MR #: [id number] : 1965 Age/Sex: 51/F Req #: [id number] Adm Physician: KRISTOPHER JULIO MD Ordered by: BARRY WALLACE MD Report #: [id number] Location: MED/SURG Room/Bed: [facility] Procedure: 0518- 0005 MRI/MRA HEAD WO Exam Date: Exam Time: R EPORT STATUS: Signed History: Acute ischemic stroke Comparison studies: Head CT on 07/06/2017 Brain MRI on 07/07/2017 Technique: 3-D time-of- flight intracranial. Contrast: None Findings: Internal carotid arter ies: No flow abnormalities. Vertebral arteries: No flow abnormalities in the visualized intracranial segments. Basilar artery: No flow abnorma lities. Posterior cerebral arteries: No flow abnormalities. Anatomic al variants: Acom: Visualized. Pcoms: Right patent. The P1 segment of the ri ght [employer] is mildly hypoplastic. Left not visualized. Vertebral arteries: Righ t dominant IMPRESSION: No abnormalities . Signed by: Dr. Mason Santoro M.D. on 07/10/2017 5:02 PM Dictated By: MASON Broderick MD 01 Tra nscribed By: DOMENICA on 07/10/171701 COPY TO: BARRY WALLACE MD MRI SPINE LUMBAR WO [place] [address] Patient Name: ELIANA SAMUELS [facility] MR #: [id number] : 1965 Age/Sex: 51/F Req #: [id number] Adm Physician: KRISTOPHER JULIO MD Ordered by: KRISTOPHER JULIO MD Report #: [id number] Location: MED/SURG Room/Bed: [facility] Procedure: 0517 -0008 MRI/MRI SPINE LUMBAR WO Exam Date: Exam Time: REPORT STATUS: Signed Exam: Lumbar spine MRI without IV contrast History: Arm and leg weakness Comparison studies: None Technique: Sag ittal and axial T2 , sagittal T1 and IR, axial spin density oblique and coron al T2. Intravenous contrast: None Findings: Number of lumbar vertebr al bodies: 5. Alignment: Normal lordosis. No scoliosis. Soft tissues: No T2 hyperintense inflammatory changes. Paraspinal muscles: Mild symmetric atrophy. Lower thoracic cord: Normal in signal and morphology. The tip of the conus is at L2 . Cauda equina: No masses. No arachnoiditis. Jenny tebrae: No compression fractures, infection or neoplasm. Degenerative ch anges: Mild loss of T2/STIR disc signal from T10 through L3 and L5-S1. L1-L2: Patent canal and foramina. L2-L3: Mild loss of disc height and loss of T2/STIR disc signal. Mild symmetric bulging disc which does not resul t in canal stenosis. Patent foramina. L3-L4: No abnormalities L4-L5 : Mild symmetric bulging disc and mild right facet arthrosis without associate d canal or foraminal stenosis. L5-S1: Moderate loss of disc height and loss of T2 disc signal. Symmetric disc bulge and facet arthrosis with mild to moderate bilateral foraminal stenosis. Additional findings: Multiple smal l T2 hyperintense lesions in the right kidney are most likely cysts. The left kidney is atrophic and contains a few small T2 hyperintense lesions which may also be cysts. IMPRESSION: 1. Moderately degenerated disc with mi ld to moderate bilateral foraminal stenosis at L5-S1. No canal stenosis or sig nificant foraminal stenosis at the remaining lumbar levels. 2. Incidenta l atrophic left kidney with bilateral renal cysts. Signed by: Dr. Kevin king M.D. on 07/10/2017 7:00 AM Dictated By: KEVIN CACERES MD [facility] Signed By: KEVIN CACERES MD on 07/10/17 0700 Transcribed By: DOMENICA sky 07/10/17 0700 COPY TO: KRISTOPHER JULIO MD MRI SPINE CERVICAL WO [place] [address] Patient Name: ELIANA SAMUELS [facility] MR #: [id number] : 1965 Age/Sex: 51/F Req #: [id number] Adm Phy sician: KRISTOPHER JULIO MD Ordered by: KRISTOPHER JULIO MD Report #: [id number] Location: MED/SURG Room/Bed: [facility] Procedure: 0517 -0006 MRI/MRI SPINE CERVICAL WO Exam Date: Exam Anibal e: REPORT STATUS: Signed Exam: Cervical spine MRI without IV contrast History: Arm and leg weakness Comparison studies: None Technique: Sa gittal T1, T2 and IR, axial T2 and axial gradient echo Intravenous contrast: None Findings: Alignment: Normal lordosis. No scoliosis. Cervicomed ullary junction: No abnormalities. Patent foramen magnum. Soft tissues: No T2 hyperintense inflammatory changes. Spinal cord: Normal in size and signal fro m the foramen magnum through T1. Vertebrae: No fractures, infection or neoplasm. Postsurgical changes: Anterior cervical discectomy and fusion (AC DF) at C5-C6 with anterior plate fixated via anterior vertebral body screws an d solid interbody fusion. Probable discectomy changes at C6-C7 with susceptibi lity artifact related related to metallic hardware/possible cage prosthesis wh ich extends from the disc space to the superior C7 endplate. Hardware cannot b e further evaluated by MRI and could better be evaluated by conventional cervi trina spine x-ray or cervical spine CT as warranted. Degenerative changes: C2-C3: Patent canal and foramina. C3-C4: Mildly degenerated disc. Mild canal stenosis due to a disc osteophyte complex with small central disc p rotrusion. Moderate bilateral foraminal stenosis due to uncovertebral and face t arthrosis. C4-C5: Moderately degenerated disc adjacent to the fused lev el. Mild canal stenosis due to a disc osteophyte complex. Moderate bilateral f oraminal stenosis due to uncovertebral arthrosis. C5-C6: Surgical level . Patent canal and foramina. C6-C7: Moderate loss of disc height. Residua l disc osteophyte complex and mildly thickened ligamentum flavum result in mil d canal stenosis. Moderate bilateral foraminal stenosis due to uncovertebral a rthrosis. Patent canal and foramina. C7-T1: Right facet arthrosis. Patent canal and foramina. Incidental findings: Nonspecific T2 hyperintense diana ctive changes in the right mastoids. A T2 hyperintense cyst or nodule in the right thyroid lobe measures 0.8 cm. IMPRESSION: 1. No cervical cord signal abnormalities. 2. Surgical changes of C5-C6 anterior fusion and pre sumed discectomy at C6-C7. 3. Mildly degenerated disc at C3-C4. Moderately degenerated disc at C4-C5 and moderate decreased disc space at C6-C7. 4. Mild degenerative canal stenosis with moderate bilateral degenerative forami nal stenosis at C3-C4, C4-C5 and at C6-C7. Signed by: Timothy Joseph on 07/10/2017 7:26 AM Dictated By: KEVIN CACERES MD Electronically S igned By: KEVIN CACERES MD on 07/10/17725 Transcribed By: DOMENICA on 725 COPY TO: KRISTOPHER JULIO MD CHEST 2 VIEWS [place] [address] Patient Name: ELIANA SAMUELS [facility] MR #: [id number] : 1965 Age/Sex: 51/F Req #: [id number] Adm Physician: KRISTOPHER JULIO MD Ordered by: KRISTOPHER JULIO MD Report #: [id number] Location: MED/SURG Room/Bed: [facility] Procedure: 515 DX/CHEST 2 VIEWS Exam Date: Exam Time: REPORT STATUS: Signed PROCEDURE: Frontal and lateral views of the chest. COMPARISON: None. INDICATIONS: shortness of breath, chest pain FINDINGS: Lines/tubes: None. Lungs: The lungs are well inflated and clear. There is no evidence of pneumonia or pulmonary edema. Pleura : There is no pleural effusion or pneumothorax. Heart and mediastinum: T he heart and the mediastinum are normal. Bones: No acute bony abnormality . IMPRESSION: No acute cardiopulmonary disease. Dictated by: Dwayne Weston M.D. on 07/08/2017 at 15:36 Electronically approved by: Dwayne Weston M.D. on 07/08/2017 at 15:36 Dictated By: DWAYNE WESTON MD Electronica lly Signed By: DWAYNE WESTON MD on 07/08/17 1536 Transcribed By: GEORGIA on 07/08/17 15 36 COPY TO: KRISTOPHER JULIO MD MRI BRAIN [place] [address] Patient Name: ELIANA SAMUELS [facility] MR #: [id number] : 1965 Age/Sex: 51/F Req #: [id number] Adm Physician: KRISTOPHER JULIO MD Ordered by: LIBRADO BAEZA M.D. Report #: [id number] Location: ICU Room/Bed: ICU 1941 Procedure: [id number] MRI/MRI BRAIN WO Exam Date: Exam Time: REPORT STATUS: Signed EXAMINATION: MRI of the brain without contrast. HISTORY: Acute ischemic stroke, status post TPA COMPARISON: None. OSMAN HNIQUE: Sagittal T2; axial DWI, T2, FLAIR, T1-IR, T2 gradient echo; coronal FL AIR. IMAGE QUALITY: Adequate. FINDINGS: Parenchyma: 1. A few scattered white matter hyperintense foci, most likely nonspecific chronic medical changes mostly in the bilateral frontal lobes 2. No mass, hemorrhage , acute or chronic infarcts. Skull: Unremarkable. Vessel s: Expected flow voids present in the major arteries and dural sinuses. Extra-axial spaces: No abnormal signal intensity or mass effect. Brain v olume: Within normal limits for age. Ventricles: No hydrocephalus or disp lacement. Foramen magnum: Unremarkable. Sella: Unremarkable. Paranasal / mastoid sinuses: Partial opacification of the right mastoid air cells, likely minimal effusion, otherwise clear. IMPRESSION: 1. N o acute infarcts seen at this time. No intracranial hemorrhage. 2. Unchang ed minimal chronic microvascular ischemic changes compared to head CT on 2017. Signed by: Dr. Juanita Vuong M.D. on 07/07/2017 7:59 PM Dictated By: JUANITA VUONG MD 58 Transcribed By: DOMENICA on 07/07/171958 COPY TO: LIBRADO BAEZA M.D [facility] (PORTABLE) [place] [address] Patient Name: ELIANA SAMUELS [facility] MR #: [id number] : 1965 Age/Sex: 51/F Req #: [id number] Adm Physician: Ordered by: SANDEEP FOY MD Report #: [id number] Location: ER Room/Bed: Procedure: DX/CHEST SINGLE (PO RTABLE) Exam Date: 07/06/17 Exam Time: 1814 RE PORT STATUS: Signed PROCEDURE: CHEST SINGLE (PORTABLE) COMPARISON: None. INDICATIONS: altered mental status FINDINGS: LUNGS: No significant pulmonary parenchymal abnormalities and normal vascularity. CARDIAC: Normal size cardiac silhouette. MEDIASTINUM: Normal. PLEURA: Normal. BONES: Fusion plate in the lower cervical spine is partially imaged. Visualized portions are unremarkable. OTHER: Negative. CONCLUSION: No acute cardiopulmonary process. Dictated by: Ashlee Garrison M.D. on 07/06/2017 at 18:40 Electronically approved by: Ashlee Garrison M.D. on 07/06/2017 at 18:40 Dictated By: ASHLEE GARCIA MD 39 Transcribe d By: GEORGIA on 07/06/171839 COPY TO: SANDEEP FOY MD CT BRAIN WO [place] [address] Patient Name: ELIANA SAMUELS MR #: [id number] : 1965 Age/Sex: 51/F Req #: [id number] Adm Physician: Ordered by: SANDEEP FOY MD Report #: [id number] Location: ER Room/Bed: Procedure: [id number] CT/CT BRAIN WO Jessicaa m Date: 07/06/17 Exam Time: 1814 REPORT STATUS: Signed History: Bilateral weakness Comparison studies: None Technique : Axial images were obtained from the skull base to the vertex. Coronal a nd sagittal reconstructions obtained from the axial data. Findings: Sc alp/skull: No abnormalities. No fractures, blastic or lytic lesions. Ext ra-axial spaces: No masses. No fluid collections. Brain sulci: Appropri ate for age. Ventricles: Normal in size and configuration. No hydrocephalus. Parenchyma: Few hypodensities in the supratentorial white matter are smal l vessel ischemic changes. No masses, hemorrhage, acute or chronic cortical va scular insults. Sellar/suprasellar region: No abnormalities. Craniocervic al junction: Patent foramen magnum. No Chiari one malformation. Incidental findings: Atherosclerotic calcifications in the carotid siphons . Mild opac ification of the right mastoid air cells. Impression: No acute abnorm alities. Mild supratentorial white matter small vessel ischemic changes. Signed by: DR Tru Garcia M.D. on 07/06/2017 7:00 PM Di ctated By: TRU STREETER MD 99 Transcribed By: DOMENICA on 07/06/171899 COPY TO: SANDEEP WINCHESTER MD
--- OUTSIDE RECORDS SUMMARY | 2019-07-29 13:15 | XMS REPORT | Summary of Care ---
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 Role Phone Isra Chuck Omari PCP Reason for Visit * Reason Comments Cough Headache Diarrhea Encounter Details Care Team Description Date Type Department Landon Trejo MD [address] [place] [address] [id number] Pob[facility], [facility] Acute URI (Primary Dx); Cough 05/27/[address] [id number] Allergies Comments Active Allergy Reactions Severity Noted Date Severe dizziness, severe headaches Rudolph Inhibitors Nausea Only Medium 07/13/2013 Zolpidem Tartrate Rash 05/26/2019 Leg pain Atorvastatin Other - See Medium 07/13/2013 comments Allergy to Zyban As well in same category as wellbutrin Gives pt seizures Bupropion Hcl Other - See 07/13/2013 comments Acid reflux Citric Acid Nausea Only, Low 07/13/2013 Rash Latex Other - See 05/26/2019 comments Penicillins Rash Medium 07/13/2013 Sulfa (Sulfonamide Rash Medium 07/13/2013 Antibiotics) Tramadol Hcl Other - See 05/26/2019 comments documented as of this encounter (statuses as of 05/29/2019) Medications End Date Status Medication Sig Dispensed Refills Start Date Active HYDROcodone-acetaminophen Take 1 tablet 0 10-325 mg tablet by mouth. Active amLODIPine 10 mg tablet Take 1 tablet 0 by mouth 0 daily. Active carvediloL 12.5 mg tablet Take 1 tablet 0 04/0 by mouth 2 0 (two) times daily with meals. Active cloNIDine 0.3 mg tablet Take 1 tablet 0 by mouth 4 0 (four) times daily. Active citalopram (CELEXA) 40 mg Take 1 tablet 0 04/0 tablet by mouth 0 daily. Active clopidogreL (PLAVIX) 75 Take 1 tablet 0 mg tablet by mouth 0 daily. Active levothyroxine 88 mcg Take 1 tablet 0 tablet by mouth 0 every morning. Active LORazepam 1 mg tablet Take 1 tablet 0 05/26/19 2 by mouth 2 0 (two) times daily. Active metFORMIN 500 mg tablet Take 1 tablet 0 by mouth 2 0 (two) times daily with meals. Active mirtazapine (REMERON) 45 Take 1 tablet 0 05/25 mg tablet by mouth at 0 bedtime. Active montelukast (SINGULAIR) Take 1 tablet 0 10 mg tablet by mouth. 0 Active nitroglycerin (NITROSTAT) Place 1 0 0.4 mg sublingual tablet tablet under 0 the tongue every 5 (five) minutes as needed for Chest pain. Active omeprazole 40 mg capsule Take 1 0 05/25 capsule by 0 mouth daily. Active ondansetron (ZOFRAN ODT) Take 1 tablet 0 05/25 4 mg disintegrating by mouth 0 tablet every 8 (eight) hours as needed for Nausea and Vomiting (N/V). Active potassium chloride 20 mEq Take 20 mEq 0 packet by mouth 0 daily. Active rosuvastatin (CRESTOR) 20 Take 1 tablet 0 0 mg tablet by mouth at 0 bedtime. Active budesonide-formoteroL Inhale 2 10.2 g 0 80-4.5 mcg/actuation Puffs 2 (two) 0 inhaler times daily. Active valACYclovir (VALTREX) Take 1 tablet 0 05/25/ 02 500 mg tablet by mouth 0 daily. Active ezetimibe (ZETIA) 10 mg Take 1 tablet 0 tablet by mouth 0 daily. Active oxybutynin chloride 5 mg Take 1 tablet 0 05/25 tablet by mouth 3 0 (three) times daily. Active azithromycin 250 mg Take 1 tablet 1 Package 0 tabletIndications: Acute by mouth 0 URI, Cough daily. Take 500 mg day 1, then 250 mg days 2 to 5. Active benzonatate (TESSALON Take 1 21 capsule 0 RASHID) 100 mg capsule by 0 capsuleIndications: Acute mouth 3 URI, Cough (three) times daily as needed for Cough. documented as of this encounter (statuses as of 05/29/2019) Active Problems No known active problemsdocumented as of this encounter (statuses as of 05/29/2019) Social History Date Tobacco Use Types Packs/Day Years Used Current Every Day Smoker Cigarettes 1 43 Smokeless Tobacco: Never Used Drinks/Week oz/Week Comments Alcohol Use Never Alcohol Habits Answer Date Recorded How often do you have a drink containing alcohol? Never 05/27/2019 How many drinks containing alcohol do you have on No t asked a typical day when you are drinking? How often do you have six or more drinks on one Not asked occasion? Sex Assigned at Date Recorded Not on file Industry Job Start Date Occupation Not on file Not on file Not on file Travel End Travel History Travel Start No recent travel history available. documented as of this encounter Last Filed Vital Signs Reading Time Taken Comments Vital Sign 109/74 05/27/2019 11:24 AM CDT Blood Pressure 58 05/27/2019 11:24 AM CDT Pulse 36.7 C (98 F) 05/27/2019 11:24 AM CDT Temperature 19 05/27/2019 11:24 AM CDT Respiratory Rate 97% 05/27/2019 11:24 AM CDT Oxygen Saturation - - Inhaled Oxygen Concentration 60.8 kg (134 lb) 05/27/2019 11:24 AM CDT Weight 160 cm (5' 3") 05/27/2019 11:24 AM CDT Height 23.74 05/27/2019 11:24 AM CDT Body Mass Index documented in this encounter Progress Notes * Maude Clark PA - 05/27/2019 11:00 AM CDT Cc: Chief Complaint Patient presents with Cough Headache Diarrhea Pallavi Jackman is a 53 year old female. Patient presents with URI symptoms that began 2 weeks. Travel: none Known COVID1 9 exposure? none. Suspected COVID19 exposure? none. Sick Contacts? none Contacted PCP, Dr. Dhaliwal, who advised she be tested for COVID-19 here. URI Presenting symptoms: congestion, cough, fatigue, rhinorrhea and sore throat Presenting symptoms: no ear pain, no facial pain and no fever Duration: 2 weeks Timing: Intermittent Progression: Unchanged Chronicity: New Worsened by: Nothing Ineffective treatments: zyrtec. Associated symptoms: arthralgias, sinus pain and sneezing Associated symptoms: no headaches, no myalgias, no neck pain, no swollen glands and no wheezing Risk factors: chronic cardiac disease, chronic respiratory disease and diabetes mellitus Risk factors: not elderly, no chronic kidney disease, no immunosuppression, no r ecent illness, no recent travel and no sick contacts Allergies Pallavi is allergic to rudolph inhibitors; atorvastatin; penicillins; sulfa (sulfo namide antibiotics); ambien [zolpidem tartrate]; bupropion hcl; latex; ultram [t ramadol hcl]; and citric acid. Medications Outpatient Medications Prior to Visit Medication Sig Dispense Refill amLODIPine 10 mg tablet Take 1 tablet by mouth daily. budesonide-formoteroL 80-4.5 mcg/actuation inhaler Inhale 2 Puffs 2 (two) ti mes daily. 10.2 g carvediloL 12.5 mg tablet Take 1 tablet by mouth 2 (two) times daily with me als. citalopram (CELEXA) 40 mg tablet Take 1 tablet by mouth daily. cloNIDine 0.3 mg tablet Take 1 tablet by mouth 4 (four) times daily. clopidogreL (PLAVIX) 75 mg tablet Take 1 tablet by mouth daily. ezetimibe (ZETIA) 10 mg tablet Take 1 tablet by mouth daily. HYDROcodone-acetaminophen 10-325 mg tablet Take 1 tablet by mouth. levothyroxine 88 mcg tablet Take 1 tablet by mouth every morning. LORazepam 1 mg tablet Take 1 tablet by mouth 2 (two) times daily. 0 metFORMIN 500 mg tablet Take 1 tablet by mouth 2 (two) times daily with meal s. mirtazapine (REMERON) 45 mg tablet Take 1 tablet by mouth at bedtime. montelukast (SINGULAIR) 10 mg tablet Take 1 tablet by mouth. nitroglycerin (NITROSTAT) 0.[address] 1 tablet under the tongue every 5 (five) minutes as needed for Chest pain. omeprazole 40 mg capsule Take 1 capsule by mouth daily. ondansetron (ZOFRAN ODT) 4 mg disintegrating tablet Take 1 tablet by mouth e very 8 (eight) hours as needed for Nausea and Vomiting (N/V). oxybutynin chloride 5 mg tablet Take 1 tablet by mouth 3 (three) times daily . potassium chloride 20 mEq packet Take 20 mEq by mouth daily. rosuvastatin (CRESTOR) 20 mg tablet Take 1 tablet by mouth at bedtime. valACYclovir (VALTREX) 500 mg tablet Take 1 tablet by mouth daily. No facility-administered medications prior to visit. Histories Past Medical History: Diagnosis Date Anxiety Arrhythmia COPD (chronic obstructive pulmonary disease) Diabetes Hyperlipidemia Hypertension History reviewed. No pertinent surgical history. Social History Socioeconomic History Marital status: Single Spouse name: Not on file Number of children: Not on file Years of education: Not on file Highest education level: Not on file Occupational History Not on file Social Needs Financial resource strain: Not on file Food insecurity: Worry: Not on file Inability: Not on file Transportation needs: Medical: Not on file Non-medical: Not on file Tobacco Use Smoking status: Current Every Day Smoker Packs/day: 1.00 Years: 43.00 Pack years: 43.00 Types: Cigarettes Smokeless tobacco: Never Used Substance and Sexual Activity Alcohol use: Never Frequency: Never Drug use: Never Sexual activity: Not on file Lifestyle Physical activity: Days per week: Not on file Minutes per session: Not on file Stress: Not on file Relationships Social connections: Talks on phone: Not on file Gets together: Not on file Attends roman catholic service: Not on file Active member of club or organization: Not on file Attends meetings of clubs or organizations: Not on file Relationship status: Not on file Intimate partner violence: Fear of current or ex partner: Not on file Emotionally abused: Not on file Physically abused: Not on file Forced sexual activity: Not on file Other Topics Concern Not on file Social History Narrative Lives at home with partner Chidi Family History Problem Relation Age of Onset Diabetes Mother Heart Mother Diabetes Father Heart Father Review of Systems Constitutional: Positive for fatigue. Negative for activity change, appetite mervat nge, chills, diaphoresis and fever. HENT: Positive for congestion, rhinorrhea, sinus pain, sneezing and sore throat. Negative for ear pain, postnasal drip, sinus pressure, trouble swallowing and v oice change. Eyes: Negative for pain, discharge, redness and itching. Respiratory: Positive for cough. Negative for chest tightness, shortness of ramon th and wheezing. Cardiovascular: Negative for chest pain, palpitations and leg swelling. Gastrointestinal: Negative for abdominal pain, constipation, diarrhea, nausea an d vomiting. Stool is a little more loose occasionally. not black or bloody Musculoskeletal: Positive for arthralgias. Negative for myalgias, neck pain and neck stiffness. Skin: Negative for color change and rash. Neurological: Negative for dizziness, syncope, weakness, light-headedness, numbn ess and headaches. Vital Signs BP 109/74 (BP Location: Left arm, Patient Position: Sitting, BP CUFF SIZE: Adult Medium) | Pulse 58 | Temp 36.7 C (98 F) (Oral) | Resp 19 | Ht 5' 3" (1.6 m) | Wt 134 lb (60.8 kg) | SpO2 97% | BMI 23.74 kg/m Physical Exam Constitutional: She is oriented to person, place, and time. She appears well-dev eloped and well-nourished. No distress. HENT: Head: Normocephalic and atraumatic. Right Ear: Tympanic membrane, external ear and ear canal normal. Left Ear: Tympanic membrane, external ear and ear canal normal. Nose: Mucosal edema and rhinorrhea present. Mouth/Throat: Uvula is midline, oropharynx is clear and moist and mucous membran es are normal. No oropharyngeal exudate, posterior oropharyngeal edema, posterio r oropharyngeal erythema or tonsillar abscesses. Tonsils are 0 on the right. Ton sils are 0 on the left. No tonsillar exudate. Eyes: Conjunctivae are normal. Neck: Normal range of motion. Neck supple. Cardiovascular: Normal rate, regular rhythm and normal heart sounds. Pulmonary/Chest: Effort normal and breath sounds normal. No stridor. No respirat ory distress. She has no wheezes. She has no rales. Abdominal: Soft. Bowel sounds are normal. She exhibits no distension. There is n o tenderness. There is no rebound and no guarding. Musculoskeletal: Normal range of motion. She exhibits no edema. Lymphadenopathy: She has no cervical adenopathy. Neurological: She is alert and oriented to person, place, and time. Skin: Skin is warm and dry. No rash noted. She is not diaphoretic. Psychiatric: She has a normal mood and affect. Her behavior is normal. Nursing note and vitals reviewed. Assessment/Plan Acute URI (primary encounter diagnosis) Cough Plan: CORONAVIRUS COVID-19 TESTING, CORONAVIRUS COVID-19 TESTING, azithromycin 250 mg tablet, benzonatate (TESSALON PERLES) 100 mg capsule Afebrile, well appearing, non-toxic, NAD. HR < 100, lungs CTAB. No rales. O2 sat 97%. COVID-19 testing ordered. Given duration of symptoms concern for bacterial URI. Will start on zpack given patient allergies. Take full course as directed with food. Educated on potential drug interaction with citalopram. Patient reports taking zpack in the past without issue. ED precautions given. Advised to hold zofran while taking zpack. Patient reports understanding and agrees. Educated on the following at home care: -Increase water intake -Take over the counter vitamin C -Take Tylenol as needed, avoid nsaids -Take tessalon as needed for cough -REST -Wash hands often -Cover mouth when coughing -Wear mask with in the same room/car as others -Gargle with warm salt water as needed -Drink warm liquids as needed. -Throat lozenges as needed -Quarantine until your COVID results are back -Stay in your own bedroom and use a separate bathroom -Keep at least 6 feet from you and others -Avoid sharing personal household items, dishes, glasses, cups, towels -Clean high traffic/touch areas daily. These include but not limited to: doorkno bs, refrigerator/cabinet handles, phones, keyboards, tablets, light switches. -Monitor your symptoms. Take your temperature 2 times daily. -Follow-up with PCP as needed, if no improvement. -Monitor your symptoms. Go to the ED if worsening symptoms: chest pain, difficul ty breathing, coughing up blood, weakness, dizziness, passing out, AMS. Pt ed/precautions given in detail regarding conditions/medicaitons. Er precautio ns given. Pt reports understanding and agrees. rtc if s/s worsen or do not improve ; Plan of care, desired health behaviors, goals, Ddx, & any prescribed or OTC medications discussed with patient. Education resources & self management tools provided and reviewed with AVS. Patient/guardian/family verbalized understanding & agrees to plan of care. Barriers to care: NONE Ability to manage care: Good This visit did not involve counseling and coordination that comprised more than 50% of the visit time. documented in this encounter Plan of Treatment Health Maintenance Due Date Last Done Comments HEPATITIS C (HCV) SCREEN 1965 PNEUMOCOCCAL 0-64 YEARS 1970 COMBINED SERIES (1 of 1 - PPSV23) DTaP,Tdap,and Td Vaccines 12/08/1975 (1 - Tdap) PAP SMEAR 1985 Breast Cancer Screening 2004 (MAMMOGRAM) COLONOSCOPY 2014 Zoster Recombinant 2014 Vaccine (SHINGRIX) (1 of 2) INFLUENZA VACCINE (#1) 2018 documented as of this encounter Procedures Comments Procedure Name Priority Date/Time Associated Diag nosis CORONAVIRUS COVID-19 Routine 05/27/2019 Cough TESTING 11:21 AM CDT Acute URI documented in this encounter Results * CORONAVIRUS COVID-19 TESTING (05/27/2019 11:21 AM CDT) SARS-CoV-2 Not Detected Not Detected [facility] Specimen Swab - NASOPHARYNGEAL SWAB Narrative Performed At [facility] SARS-CoV-2 kit is used for this assay . It is a real-time (rt) [facility] reverse transcriptase (RT) polymerase c jeniffer reaction (PCR) test intended for the SERVICES qualitative detection of nucleic acid f rom the SARS-CoV-2 in nasopharyngeal (HR GENERALIST) and oropharyngeal (OP) swabs. It is use d under Emergency Use Authorization (EUA) by FDA. The limit of detection (LOD) of the assay is 100 virus copies/mL. False positive results may occur. A negativ e result does not rule out the presence of PCR inhibitors in the patient specim en or SARS-CoV-2 virus RNA concentrations below the limit of detection by the ass ay. Test results should not be used as the sole basis for patient management d ecisions. Performing Organization Address City/State/Zipcode Ph one Number [facility] CLIA: [id number], [address] [place] [address] [facility] documented in this encounter Visit Diagnoses Diagnosis Acute URI - Primary Acute upper respiratory infections of u nspecified site Cough documented in this encounter Insurance Type Payer Benefit Subscriber ID Effective Phone Address Plan / Dates Group Medicare Adv O [facility] [id number] 2019-P MANAGED MEDICARE HEALTHCARE resent DUAL COMPLETE HMO [id number] documented as of this encounter
--- OUTSIDE RECORDS SUMMARY | 2019-07-29 13:15 | XMS REPORT | Summary of Care ---
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 Active amLODIPine 10 mg tablet Take 1 tablet 0 by mouth 0 daily. Active carvediloL 12.5 mg tablet Take 1 tablet 0 by [...] rosuvastatin (CRESTOR) 20 Take 1 tablet 0 /0 mg tablet by mouth at 0 bedtime. Active budesonide-formoteroL Inhale 2 10.2 g 0 80-4.5 mcg/actuation Puffs 2 (two) 0 inhaler times daily. Active valACYclovir (VALTREX) Take 1 tablet 0 //2 02 500 mg tablet by mouth 0 daily. Active ezetimibe (ZETIA) 10 mg Take 1 tablet 0 tablet by mouth 0 daily. Active oxybutynin chloride 5 mg Take 1 tablet 0 05/25 tablet by mouth 3 0 (three) times daily. Active azithromycin 250 mg Take 1 tablet 1 Package 0 04/0 tabletIndications: Acute by mouth 0 URI, Cough daily. Take 500 mg day 1, then 250 mg days 2 to 5. Active benzonatate (TESSALON Take 1 21 capsule 0 PERLGLYNN) 100 mg capsule by 0 capsuleIndications: Acute mouth 3 URI, Cough (three) times daily as needed for Cough. documented as of this encounter (statuses as of 05/28/2019) Active Problems No known active problemsdocumented as of this encounter (statuses as of 05/28/2019) Social History Date Tobacco Use Types Packs/Day [...] of this encounter Last Filed Vital Signs Not on filedocumented in this encounter Plan of Treatment Health Maintenance Due Date Last Done Comments HEPATITIS C (HCV) SCREEN 1965 PNEUMOCOCCAL 0-64 YEARS 1970 COMBINED SERIES (1 of 1 - PPSV23) DTaP,Tdap,and Td Vaccines 12/08/1975 (1 - Tdap) PAP SMEAR 1985 Breast Cancer Screening 2004 (MAMMOGRAM) COLONOSCOPY 2014 Zoster Recombinant 2014 Vaccine (SHINGRIX) (1 of 2) INFLUENZA VACCINE (#1) 2018 documented as of this encounter Results Not on filedocumented in this encounter Insurance Type Payer Benefit Subscriber ID Effective Phone Address Plan / Dates Group Medicare Adv O [facility] [id number] 2019-P MANAGED MEDICARE HEALTHCARE resent DUAL COMPLETE HMO documented as of this encounter
[2019-07-29] MEDS ORDERED: BISACODYL 5 MG TAB EC PO ONE (13:30)
[2019-07-29] MEDS ORDERED: BISACODYL 10 MG SUPP PR ONE (13:30)
[2019-07-29] MEDS ORDERED: LACTULOSE SYRUP 20 GM/30 ML UDC PO ONE (13:30)
[2019-07-29] MEDS ORDERED: CITRATE OF MAGNESIA 300ML BOTTLE PO ONE (13:45)
[2019-07-29 13:55] LABS: BASOPHILS % 0.3 % (0.0-1.0); EOSINOPHILS # (AUTO) 0.2 (0.0-0.4); EOSINOPHILS % 1.4 % (0.0-6.0); HEMATOCRIT 40.6 % (34.2-44.1); HEMOGLOBIN 13.4 g/dL (12.0-16.0); LYMPHOCYTES # (AUTO) 3.1 (1.0-3.2); MEAN CORPUSCULAR HEMOGLOBIN 30.9 pg (28-32); MEAN CORPUSCULAR VOLUME 93.5 fL (81-99); MONOCYTES % 7.8 % (4.4-11.3); NEUTROPHILS # (AUTO) 8.9 (2.1-6.9); NEUTROPHILS % 67.1 % (38.7-80.0); PLATELET COUNT 283 x10e3/uL (140-360); RED BLOOD COUNT 4.34 x10e6/uL (3.6-5.1); RED CELL DISTRIBUTION WIDTH 13.1 % (11.7-14.4)
[2019-07-29 14:13] LABS: ALANINE AMINOTRANSFERASE 12 IU/L (0-55); ALBUMIN 3.4 g/dL (3.5-5.0); ALBUMIN/GLOBULIN RATIO 1.1 (0.8-2.0); ALKALINE PHOSPHATASE 78 IU/L (40-150); ANION GAP 14.9 mmol/L (8-16); BLOOD UREA NITROGEN 10 mg/dL (7-26); BUN/CREATININE RATIO 14 (6-25); CALCIUM 9.6 mg/dL (8.4-10.2); CARBON DIOXIDE 22 mmol/L (22-29); CHLORIDE 107 mmol/L (98-107); EST GLOMERULAR FILTRATION RATE > 60 ML/MIN (60-); GLUCOSE 104 mg/dL (74-118); POTASSIUM 3.9 mmol/L (3.5-5.1); SODIUM 140 mmol/L (136-145)
[2019-07-29] MEDS ORDERED: DIATRIZOATE MEGL/DIATRIZOA SOD 30 ML BTL PO ONE (14:14)
--- NOTE | 2019-07-29 14:25 | Emergency Department Note ---
History of Present Illnes History of Present Illness Chief Complaint: Abdominal Complaints History of Present Illness This is a 53 year old female . Chief Complaint Comment PATIENT IN FROM DR GUZMÁN OFFICE FOR EVALUATION OF CONSTIPATION X 8 DAYS; STATES IS ON COLACE 100 MG PO BID, AND HAS TRIED 3 FLEETS ENEMAS AT HOME WITHOUT SUCCESS. PATIENT ALERT AND ORIENTED, RESP EVEN AND NONLABORED, APPEARS IN NO DISTRESS, RATES PAIN 10/02 Historian: Patient Arrival Mode: Car Onset (how long ago): day(s) Radiation: non-radiation Severity: moderate Onset quality: gradual Duration (how long): day(s) Timing of current episode: constant Progression: unchanged Chronicity: recurrent Context: other (and chronic pain med/opiates) (BENI COHEN DO) Past Medical/Family History Physician Review I have reviewed the patient's past medical and family history. Any updates have been documented here. (BENI COHEN DO) Past Medical History Recent Fever: No Clinical Suspicion of Infectio: No New/Unexplained Change in Ment: No Past Medical History: Hypertension, Diabetes, CVA, Hypothyroidism, Anxiety, Depression, Hyperlipedemia, Chronic Back Pain, Osteoarthritis Other Medical History: OSTEOPOROSIS, AUTO-IMMUNE DEFICIANCY, HERPES, CHRONIC BACK PAIN PSORIASIS, ANGINA Past Surgical History: Hysterectomy, Back Surgery Other Surgery: CERVICAL SPINE FUSION, D&C X 4, EXPLORATORY LAP X 3 (BENI COHEN, ) Social History Smoking Cessation: Current every day smoker Counseling Performed: Yes Alcohol Use: None Any Illegal Drug Use: No TB Exposure/Symptoms: No Physically hurt or threatened: No (BENI COHEN, ) Family History Family history of heart diseas: No (BENI COHEN, ) Other Last Tetanus: UTD Any Pre-Existing Lines (PICC,: No Is patient up to date on immun: Yes Last Flu: OOD Last Pneumovax: NA (BENI COHEN DO) Review of Systems Review of Systems Review of other systems All other systems reviewed and negative. (BENI COHEN DO) Physical Exam Related Data Allergies: Coded Allergies: Penicillins (Verified Allergy, Unknown, 07/29/19) Sulfa (Sulfonamide Antibiotics) (Verified Allergy, Unknown, 07/29/19) bupropion HCl (Verified Allergy, Unknown, 07/29/19) tramadol HCl (Verified Allergy, Unknown, 07/29/19) atorvastatin calcium (Verified Adverse Reaction, Unknown, MAKES HER LEGS HURT, 07/29/19) Triage Vital Signs Vital Signs Date Time Temp Pulse Resp B/P (MAP) Pulse Ox O2 Delivery O2 Flow Rate FiO2 07/29/19 13:20 99.1 64 18 106/74 98 (BENI COHEN, DO) Physical Exam CONSTITUTIONAL HENT EYES NECK PULMONARY CARDIOVASCULAR GASTROINTESTINAL GENITOURINARY SKIN MUSCULOSKELETAL NEUROLOGICAL PSYCHOLOGICAL (BENI COHEN, DO) Results Laboratory Result Diagram: 07/29/19 1333 07/29/19 1333 Laboratory Laboratory Tests Test 07/29/19 13:33 White Blood Count 13.26 x10e3/uL (4.8-10.8) Red Blood Count 4.34 x10e6/uL (3.6-5.1) Hemoglobin 13.4 g/dL (12.0-16.0) Hematocrit 40.6 % (34.2-44.1) Mean Corpuscular Volume 93.5 fL (81-99) Mean Corpuscular Hemoglobin 30.9 pg (28-32) Mean Corpuscular Hemoglobin Concent 33.0 g/dL (31-35) Red Cell Distribution Width 13.1 % (11.7-14.4) Platelet Count 283 x10e3/uL (140-360) Neutrophils (%) (Auto) 67.1 % (38.7-80.0) Lymphocytes (%) (Auto) 23.0 % (18.0-39.1) Monocytes (%) (Auto) 7.8 % (4.4-11.3) Eosinophils (%) (Auto) 1.4 % (0.0-6.0) Basophils (%) (Auto) 0.3 % (0.0-1.0) Neutrophils # (Auto) 8.9 (2.1-6.9) Lymphocytes # (Auto) 3.1 (1.0-3.2) Monocytes # (Auto) 1.0 (0.2-0.8) Eosinophils # (Auto) 0.2 (0.0-0.4) Basophils # (Auto) 0.0 (0.0-0.1) Absolute Immature Granulocyte (auto 0.05 x10e3/uL (0-0.1) Sodium Level 140 mmol/L (136-145) Potassium Level 3.9 mmol/L (3.5-5.1) Chloride Level 107 mmol/L (98-107) Carbon Dioxide Level 22 mmol/L (22-29) Anion Gap 14.9 mmol/L (8-16) Blood Urea Nitrogen 10 mg/dL (7-26) Creatinine 0.70 mg/dL (0.57-1.11) Estimat Glomerular Filtration Rate > 60 ML/MIN (60-) BUN/Creatinine Ratio 14 (6-25) Glucose Level 104 mg/dL (74-118) Calcium Level 9.6 mg/dL (8.4-10.2) Total Bilirubin 0.3 mg/dL (0.2-1.2) Aspartate Amino Transf (AST/SGOT) 13 IU/L (5-34) Alanine Aminotransferase (ALT/SGPT) 12 IU/L (0-55) Alkaline Phosphatase 78 IU/L (40-150) Total Protein 6.6 g/dL (6.5-8.1) Albumin 3.4 g/dL (3.5-5.0) Globulin 3.2 g/dL (2.3-3.5) Albumin/Globulin Ratio 1.1 (0.8-2.0) (BENI COHEN DO) Lab results reviewed: Yes (ELVA GRANT MD) Imaging Imaging results reviewed: Yes Impressions IMPRESSION: 1. Large volume of stool within the colon. No bowel dilatation to suggest obstruction. 2. Punctate nonobstructing calculus in the lower pole of a severely atrophic left kidney. No hydronephrosis. Signed by: Dr. Alad Bhakta M.D. on 07/29/2019 7:47 PM (ELVA GRANT MD) Critical Care Time Subsequent provider I assumed direction of critical care for this patient from another provider of my specialty. 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 Labwork reviewed unremarkable. CT AP awaiting to ensure no surgical/infectious process. Case signed out to Dr. Grant for further workup and ultimate the spell. (BENI COHEN DO) Depart Disposition: HOME, SELF-CARE Last Vital Signs Date Time Temp Pulse Resp B/P (MAP) Pulse Ox O2 Delivery O2 Flow Rate FiO2 07/29/19 13:20 99.1 64 18 106/74 98 (BENI COHEN DO) Home Meds Reported Medications Famotidine (PEPCID) 20 Mg Tablet, 20 MG PO DAILY, #60 TAB 07/11/17 Carvedilol (COREG) 3.125 Mg Tab, 3.125 MG PO Q8H 07/11/17 Clonidine Hcl (CLONIDINE HCL) 0.3 Mg Tablet, 0.3 MG PO Q8H, #30 TAB 07/11/17 Clopidogrel Bisulfate* (PLAVIX) 75 Mg Tablet, 75 MG PO DAILY, #30 TAB 07/11/17 Fesoterodine Fumarate (TOVIAZ) 4 Mg Tab.er.24h, 4 MG PO DAILY 01/23/13 Levothyroxine Sodium (LEVOTHYROXINE SODIUM) 100 Mcg Tablet, 100 MCG PO DAILY 01/23/13 Amlodipine Besylate (AMLODIPINE BESYLATE) 5 Mg Tablet, 5 MG PO DAILY 01/23/13 Folic Acid (FOLIC ACID) 1 Mg Tablet, 1 MG PO DAILY 01/23/13 Celecoxib* (CELEBREX*) 100 Mg Capsule, 100 MG PO BID 10/14/12 Cyclobenzaprine Hcl (FLEXERIL) 5 Mg Tablet, UNKNOWN DOSE 10/14/12 Hydrocodone Bit/Acetaminophen (NORCO 10-325 TABLET) 1 Each Tablet, 1 TAB PO 09/18/12 Ibuprofen (IBUPROFEN) 200 Mg Capsule, 400 MG PO NEEDED 09/18/12 Montelukast Sodium (SINGULAIR) 10 Mg Tablet, 10 MG PO HS 08/13/12 Mirtazapine (REMERON) 30 Mg Tab.rapdis, 30 MG PO HS 08/13/12 Valacyclovir Hcl (VALTREX) 500 Mg Tab, 500 MG PO DAILY 08/13/12 Duloxetine Hcl (CYMBALTA) 60 Mg Capsule.dr, 60 MG PO DAILY 08/13/12 Medications in the ED Lactulose 20 gm ONCE ONCE PO Last administered on 07/29/19at 13:54; Admin Dose 20 GM; Start 07/29/19 at 13:30; Stop 07/29/19 at 13:32; Status DC Bisacodyl 5 mg ONCE ONCE PO Last administered on 07/29/19at 13:54; Admin Dose 5 MG; Start 07/29/19 at 13:30; Stop 07/29/19 at 13:32; Status DC Bisacodyl 10 mg ONCE ONCE [place] Last administered on 07/29/19at 13:54; Admin Dose 10 MG; Start 07/29/19 at 13:30; Stop 07/29/19 at 13:42; Status DC Magnesium Citrate 300 ml ONCE ONCE PO Last administered on 07/29/19at 13:54; Admin Dose 300 ML; Start 07/29/19 at 13:45; Stop 07/29/19 at 13:46; Status DC Diatrizoate Meglum/ Diatrizoate Sod 30 ml STK-MED ONCE PO ; Start 07/29/19 at 14:14; Stop 07/29/19 at 14:09; Status DC (BENI COHEN DO) BENI COHEN DO Jul 29, 2019 14:25 ELVA GRANT MD Jul 29, 2019 20:26
[2019-07-29] MEDS ORDERED: IOPAMIDOL 370 MG/ML 200 ML INFUS..BTL INJ ONE (18:56)
[2019-07-29] MEDS ORDERED: SODIUM CHLORIDE 0.9% 50ML 50 ML ONE (18:56)
--- NOTE | 2019-07-29 19:50 | Diagnostic Imaging Report ---
EXAM: CT Abdomen and Pelvis WITH contrast INDICATION: Abdominal pain. Constipation. COMPARISON: None. TECHNIQUE: Abdomen and pelvis were scanned utilizing a multidetector helical scanner from the lung base to the pubic symphysis after administration of IV contrast. Coronal and sagittal reformations were obtained. Routine protocol was performed. Scan was performed when during portal venous phase. IV CONTRAST: 100 cc Isovue 300 ORAL CONTRAST: Water RADIATION DOSE: Total DLP: 247.55 mGy*cm Estimated effective dose: (DLP x 0.015 x size factor) mSv COMPLICATIONS: None FINDINGS: Radiologist notified of the examination at 7:40 PM of the day of the exam. LINES and TUBES: None. LOWER THORAX: Bibasilar dependent atelectasis. HEPATOBILIARY: No focal hepatic lesions. No biliary ductal dilation. GALLBLADDER: No radio-opaque stones or sludge. No wall thickening. SPLEEN: No splenomegaly. PANCREAS: No focal masses or ductal dilatation. ADRENALS: No adrenal nodules KIDNEYS/URETERS: Severe left renal atrophy with a punctate calculus in the lower pole. No hydronephrosis in either kidney. A few cortical low-attenuation lesions in the right kidney are present, the largest in the lower pole laterally measuring 0.8 cm on image 31 which are too small to be characterized. GI TRACT: No abnormal distention to suggest obstruction. There is a large volume of stool within the colon. PELVIC ORGANS/BLADDER: The uterus is absent. LYMPH NODES: No lymphadenopathy. VESSELS: There is mild atherosclerotic disease in the aorta and major arterial branches. PERITONEUM / RETROPERITONEUM: Trace volume of free fluid within the pelvis. BONES: There are degenerative changes in the lumbar spine particularly at L5-S1.. SOFT TISSUES: Unremarkable. IMPRESSION: 1. Large volume of stool within the colon. No bowel dilatation to suggest obstruction. 2. Punctate nonobstructing calculus in the lower pole of a severely atrophic left kidney. No hydronephrosis. Signed by: Dr. Alda Bhakta M.D. on 07/29/2019 7:47 PM
== END 2019-07-29 20:39 | disposition home or self-care (01) ==
LOC: ER 13:13
DX: R10.84 Generalized abdominal pain (principal); K59.00 Constipation, unspecified; N20.0 Calculus of kidney; I10 Essential (primary) hypertension; E11.9 Type 2 diabetes mellitus without complications; E78.5 Hyperlipidemia, unspecified; E03.9 Hypothyroidism, unspecified; Z86.73 Personal history of transient ischemic attack (TIA), and cerebral infarction without residual deficits; F17.210 Nicotine dependence, cigarettes, uncomplicated
CPT/HCPCS: 36415; 74177; 80053; 85025; 99284; Q9967